=== PATIENT | male | born 1955 | race Caucasian/White ===

== ENCOUNTER 2017-03-15 20:19 | Observation (INO) | payer MEDICARE, OTHER ==
[~2017-03-15] VITALS: Ht 180.3 cm; Wt 78.0 kg
[2017-03-15 20:25] VITALS: BP 228/138; PULSE 130; RESP 20; O2SAT 96
[2017-03-15 20:30] VITALS: BP 185/120; PULSE 103; RESP 22; O2SAT 98
[2017-03-15 20:40] VITALS: RESP 20
[2017-03-15] MEDS ORDERED: SODIUM CHLORIDE 0.9% FLUSH 10 ML FLUSH IVF PRN (20:45)
[2017-03-15 20:56] VITALS: BP_SYST 166; BP_SYST 177; BP_DIAS 89; BP_DIAS 99; PULSE 88; RESP 20; O2SAT 98
--- NOTE | 2017-03-15 20:58 | PD ---
HPI Chief Complaint: Chest Pain Time Seen by Provider: 20:36 Travel History International Travel<30 days: No Contact w/Intl Traveler<30days: No Traveled to known affect area: No History of Present Illness HPI The patient is a 62 year old male who presents to the [facility] emergency department with a history of medial chest pain that began suddenly approximately 45 minutes ago. The patient reports that he was sitting in a car when it began. He reports having some shortness of breath associated with this. He reports having pain that radiates to the right shoulder. He reports having associated nausea and vomiting 2-3 times en route to this facility. He denies having any diaphoresis. The patient has a prior history of myocardial infarction with 4 prior stents being placed. The most recent 2 stents were placed 6 years ago. He recently moved to the area from [place]. 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 He has established with a primary care physician, Dr. Mckeon. He reports that he did take his adult aspirin today. He reports that he also took his metoprolol for his blood pressure. The only other medication that the patient reports that he is on his Percocet that he's been on for the last year related to chronic neck and back pain. The patient last had a stress test done approximately a year ago. On review of systems, the patient denies any recent fevers, cough or congestion, new neck pain, abdominal pain, diarrhea, urinary symptoms, or new neurologic symptoms. The patient reports having chronic weakness of the right upper and right lower extremity related to a neck surgery done in April 2016. [facility] Past Medical History Narrative Medical the patient's past medical history is significant for chronic neck and back pain. The patient has chronic weakness of the right upper and right lower extremity related to a neck surgery done in April 2016, history of coronary artery disease with prior myocardial infarction and 4 stents placed previously. The patient has a history of hypertension. He denies any history of hyperlipidemia. Diminished Hearing: No Headaches: Yes Immunizations Current: Yes Tetanus Vaccination: Unknown Influenza Vaccination: No Past Surgical History Narrative Surgical The patient's past surgical history is significant for catheterization with 4 prior stents placed, history of neck surgery. Cardiac Surgery: Yes (4 stents) Social History Alcohol Use: No Tobacco Use: Yes (a quarter of a pack of cigarettes per day) Substance Use: No Allergies-Medications (Allergen,Severity, Reaction): Coded Allergies: No Known Allergies (Unverified , 03/15/17) Reported Meds & Prescriptions Reported Meds & Active Scripts Active Reported Percocet (Oxycodone-Acetaminophen) 5-325 mg Tab 1 Tab PO Q4H PRN Narrative Medication Metoprolol, Percocet, adult aspirin daily Review of Systems Except as stated in HPI: all other systems reviewed are Neg General / Constitutional: No: Fever Eyes: No: Visual changes HENT: Positive: Headaches, Neck Pain, No: Congestion, Neck Stiffness Cardiovascular: Positive: Chest Pain or Discomfort, Dyspnea on exertion Respiratory: Positive: Shortness of Breath, No: Cough Gastrointestinal: Positive: Nausea, Vomiting, No: Diarrhea, Abdominal Pain Genitourinary: No: Dysuria Musculoskeletal: Positive: Myalgias, Pain Skin: No Rash Neurologic: Positive: Focal Abnormalities (chronic weakness of the right upper and lower extremity), No: Weakness, Change in Mentation, Slurred Speech, Sensory Disturbance Psychiatric: No: Depression Endocrine: No: Polydipsia Hematologic/Lymphatic: No: Easy Bruising Physical Exam Narrative General: The patient is a well-developed well-nourished male. Head and Neck exam: Head is normocephalic atraumatic. Eyes: EOMI, pupils are equal round and reactive to light. Nose: Midline septum with pink mucous membranes Mouth: Dentition unremarkable. Moist mucus membranes. Posterior oropharynx is not erythematous. No tonsillar hypertrophy. Uvula midline. Airway patent. Neck: No palpable lymphadenopathy. No nuchal rigidity. No thyromegaly. The patient reports having left-sided neck pain. The patient has a scar along the posterior aspect of the left neck from a prior surgery. Cardiovascular: Regular rate and rhythm without murmurs, gallops, or rubs. Lungs: Clear to auscultation bilaterally. No wheezes, rhonchi, or rales. Abdomen: Soft, without tenderness to palpation in all 4 quadrants of the abdomen. No guarding, rebound, or rigidity. Normal bowel sounds are audible. Extremities: No clubbing, cyanosis, or edema. 2+ pulses in all 4 extremities. No calf tenderness on palpation. Back: No spinous process tenderness to palpation. No costovertebral angle tenderness to palpation. Neurologic Exam: The patient on examination has cranial nerves II through XII intact. The patient has weakness that is 4 over 5 in the right upper and right lower extremity which she reports is chronic related to his prior neck surgery. The patient has 5 over 5 strength in the left upper and left lower extremity. Intact sensation over all dermatomes. Skin Exam: No rash noted. Intact skin that is warm and dry. Data Data Last Documented VS Vital Signs Date Time Temp Pulse Resp B/P (MAP) Pulse Ox O2 Delivery O2 Flow Rate FiO2 03/15/17 21:57 20 03/15/17 21:00 95 168/98 (121) 98 Nasal Cannula 03/15/17 20:56 2.00 Orders Orders Electrocardiogram (03/15/17 20:38) B-Type Natriuretic Peptide (03/15/17 20:38) Ckmb (Isoenzyme) Profile (03/15/17 20:38) Complete Blood Count With Diff (03/15/17 20:38) Comprehensive Metabolic Panel (03/15/17 20:38) Magnesium (Mg) (03/15/17 20:38) Prothrombin Time / Inr (Pt) (03/15/17 20:38) Act Partial Throm Time (Ptt) (03/15/17 20:38) Troponin I (03/15/17 20:38) Lipase (03/15/17 20:38) Chest, Single Ap (03/15/17 20:38) Ecg Monitoring (03/15/17 20:38) Bilateral Bp Monitoring (03/15/17 20:38) Iv Access Insert/Monitor (03/15/17 20:38) Oximetry (03/15/17 20:38) Oxygen Administration (03/15/17 20:38) Sodium Chloride 0.9% Flush (Ns Flush) (03/15/17 20:45) Nitroglycerin 2% Oint (Nitroglycerin 2% (03/15/17 21:00) Nitroglycerin Sl (Nitrostat Sl) (03/15/17 21:00) Admit Order (Ed Use Only) (03/15/17 22:20) Labs Laboratory Tests Test 03/15/17 20:45 White Blood Count 5.5 TH/MM3 Red Blood Count 4.34 MIL/MM3 Hemoglobin 14.8 GM/DL Hematocrit 43.7 % Mean Corpuscular Volume 100.8 FL Mean Corpuscular Hemoglobin 34.2 PG Mean Corpuscular Hemoglobin Concent 33.9 % Red Cell Distribution Width 13.6 % Platelet Count 176 TH/MM3 Mean Platelet Volume 9.0 FL Neutrophils (%) (Auto) 46.8 % Lymphocytes (%) (Auto) 41.4 % Monocytes (%) (Auto) 8.4 % Eosinophils (%) (Auto) 2.7 % Basophils (%) (Auto) 0.7 % Neutrophils # (Auto) 2.6 TH/MM3 Lymphocytes # (Auto) 2.3 TH/MM3 Monocytes # (Auto) 0.5 TH/MM3 Eosinophils # (Auto) 0.1 TH/MM3 Basophils # (Auto) 0.0 TH/MM3 CBC Comment DIFF FINAL Differential Comment Prothrombin Time 9.9 SEC Prothromb Time International Ratio 1.0 RATIO Activated Partial Thromboplast Time 27.3 SEC Blood Urea Nitrogen 16 MG/DL Creatinine 1.12 MG/DL Random Glucose 113 MG/DL Total Protein 8.0 GM/DL Albumin 3.9 GM/DL Calcium Level 8.4 MG/DL Magnesium Level 2.2 MG/DL Alkaline Phosphatase 155 U/L Aspartate Amino Transf (AST/SGOT) 15 U/L Alanine Aminotransferase (ALT/SGPT) 16 U/L Total Bilirubin 0.2 MG/DL Sodium Level 142 MEQ/L Potassium Level 3.5 MEQ/L Chloride Level 109 MEQ/L Carbon Dioxide Level 25.7 MEQ/L Anion Gap 7 MEQ/L Estimat Glomerular Filtration Rate 67 ML/MIN Total Creatine Kinase 76 U/L Troponin I LESS THAN 0.02 NG/ML B-Type Natriuretic Peptide 25 PG/ML Lipase 283 U/L MDM Medical Decision Making Medical Screen Exam Complete: Yes Emergency Medical Condition: Yes Medical Record Reviewed: Yes Interpretation(s) Last Impressions Chest X-Ray 03/15/172037 Signed Impressions: Service Date/Time: Wednesday, March 15, 2017 20:57 - CONCLUSION: No acute disease. Khai Maloney Jr., MD Differential Diagnosis Acute coronary syndrome, versus acid reflux, versus anxiety disorder, versus pneumothorax, versus pleurisy, versus costochondritis Narrative Course During the course of the patients emergency department visit, the patients history, examination, and differential diagnosis were reviewed with the patient. The patient was placed on a department store manager with oximetry and frequent blood pressure monitoring. The patient had IV access obtained and blood work sent for analysis. The patient had an ECG done on arrival. The patient's ECG reveals a sinus tachycardia heart rate of 104, QRS duration is 80 ms, QTC 406 ms , no acute ST segment elevation is noted. The patient was initially provided nitroglycerin sublingual every 5 minutes 3 when necessary chest pain, nitroglycerin 1 inch the chest wall. The patient reports that he took an adult aspirin earlier today. The patients laboratory studies were reviewed and remarkable for a white count of 5.5, hemoglobin 14.8, platelets 176 with 8.4 monocytes, CMP as remarkable for chloride of 109, glucose 113, calcium 8.4, alk phos 155, initial set of cardiac enzymes within normal limits, BNP 25, lipase 283, PT/PTT within normal limits. Radiology studies were reviewed and remarkable for chest x-ray that shows no acute cardiopulmonary disease. CT scan of the brain shows no acute abnormality. The patient will be admitted to the chest pain center for rule out serial cardiac enzyme protocol followed by stress testing. After the patient with admitted, the patient began to complain of continued headache in spite of administration of Percocet and Lortab. I would asked to reevaluate the patient as a patient with requesting evaluation by the physician again. Because of the patient's continued headache which as likely being exacerbated by nitroglycerin , the patient with given morphine 4 mg IV, 25 mg IV, Compazine 5 mg IV. The patient's results were discussed with the patient, including the plan of care. I explained that further testing and/ or monitoring is indicated based on the patient,s history, examination, and/ or laboratory findings. Therefore, I recommended admission for additional evaluation. The patient expressed understanding and was agreeable with this plan. The patient was admitted to the hospital in stable condition and sent to a bed under the care of the chest pain center. Diagnosis Primary Impression: Chest pain, rule out acute myocardial infarction Admitting Information Admitting Physician Requests: Observation Yamile Luu MD Mar 15, 2017 20:58
[2017-03-15 21:00] VITALS: BP 168/98; PULSE 95; RESP 20; O2SAT 98
[2017-03-15] MEDS ORDERED: NITROGLYCERIN 2% OINT 1 GM PACKET TOPICAL ONE (21:00)
[2017-03-15 21:14] LABS: AUTOMATED NEUTROPHIL # 2.6 TH/MM3 (1.8-7.7); BASOPHIL % 0.7 % (0.0-2.0); EOSINOPHIL # 0.1 TH/MM3 (0-0.4); EOSINOPHIL % 2.7 % (0.0-4.0); HEMATOCRIT 43.7 % (39.0-51.0); HEMOGLOBIN 14.8 GM/DL (13.0-17.0); LYMPH % 41.4 % (9.0-44.0); LYMPHOCYTE # 2.3 TH/MM3 (1.0-4.8); MEAN CELL VOLUME 100.8 FL (80.0-100.0); MEAN CORPUSCULAR HEMOGLOBIN 34.2 PG (27.0-34.0); MEAN CORPUSCULAR HGB CONC 33.9 % (32.0-36.0); MONO % 8.4 % (0.0-8.0); MONOCYTE # 0.5 TH/MM3 (0-0.9); NEUT % 46.8 % (16.0-70.0); PLATELET COUNT 176 TH/MM3 (150-450); RED BLOOD COUNT 4.34 MIL/MM3 (4.50-5.90); RED CELL DISTRIBUTION WIDTH 13.6 % (11.6-17.2); WHITE BLOOD COUNT 5.5 TH/MM3 (4.0-11.0)
[2017-03-15] MEDS: NITROGLYCERIN 0.4 MG SL 25 TABS/BTL SL PRN ×3 (21:16→21:32)
--- NOTE | 2017-03-15 21:19 | RADRPT ---
EXAM DATE/TIME: 03/15/2017 20:57 [facility] COMPARISON: No previous studies available for comparison. INDICATIONS : Chest pain, shortness of breath. MEDICAL HISTORY : Hypertension. Smoker. SURGICAL HISTORY : Coronary artery stent. ENCOUNTER: Initial ACUITY: 1 day PAIN SCORE: 8/10 LOCATION: chest midline. FINDINGS: A single view of the chest demonstrates the lungs to be symmetrically aerated without evidence of mas s, infiltrate or effusion. The cardiomediastinal contours are unremarkable. Osseous structures are intact. CONCLUSION: No acute disease. Khai Malnoey Jr., MD on March 15, 2017 at 21:16 Board Certified Radiologist. This report was verified electronically.
[2017-03-15 21:25] LABS: PROTHROMBIN TIME - PATIENT 9.9 SEC (9.8-11.6)
[2017-03-15 21:39] LABS: ALT (GPT) 16 U/L (12-78)
[2017-03-15 21:55] LABS: ALBUMIN 3.9 GM/DL (3.4-5.0); ALKALINE PHOSPHATASE 155 U/L (45-117); AST (GOT) 15 U/L (15-37); BICARBONATE 25.7 MEQ/L (21.0-32.0); BLOOD UREA NITROGEN 16 MG/DL (7-18); CALCIUM 8.4 MG/DL (8.5-10.1); CHLORIDE 109 MEQ/L (98-107); CREATININE 1.12 MG/DL (0.60-1.30); GLOMERULAR FILTRATION RATE 67 ML/MIN (>89); GLUCOSE,RANDOM 113 MG/DL (74-106); LIPASE 283 U/L (73-393); MAGNESIUM 2.2 MG/DL (1.5-2.5); SODIUM (NA) 142 MEQ/L (136-145); TOTAL BILIRUBIN ADULT 0.2 MG/DL (0.2-1.0); TROPONIN I LESS THAN 0.02 NG/ML (0.02-0.05)
[2017-03-15 22:23] VITALS: BP 158/99; PULSE 82; RESP 20; O2SAT 96
[2017-03-15] MEDS ORDERED: oxyCODONE/ACETAMINOPHEN 5 MG/325 MG TAB PO ONE (23:30)
[2017-03-15] MEDS ORDERED: ACETAMINOPHEN 500 MG CPLT PO PRN (23:45)
[2017-03-15] MEDS ORDERED: SODIUM CHLORIDE 0.9% FLUSH 10 ML FLUSH IV FLUSH PRN (23:45)
[2017-03-15] MEDS ORDERED: ONDANSETRON HCL 4 MG/2 ML VIAL IV PUSH PRN (23:45)
[2017-03-15] MEDS ORDERED: PERC5TAB12 PO (23:50)
[2017-03-16] VITALS (8 sets, daily range): BP systolic 135–165; BP diastolic 78–102; PULSE 61–77; RESP 15–18; TEMP 97.6–98.1; O2SAT 95–98
[2017-03-16 00:50] LABS: TROPONIN I 0.02 NG/ML (0.02-0.05)
--- NOTE | 2017-03-16 00:54 | RADRPT ---
EXAM DATE/TIME: 03/16/2017 00:05 [facility] COMPARISON: No previous studies available for comparison. INDICATIONS : Cephalgia RADIATION DOSE: 56.35 CTDIvol (mGy) MEDICAL HISTORY : Cardiovascular disease. SURGICAL HISTORY : None. ENCOUNTER: Initial ACUITY: 1 day PAIN SCALE: 5/10 LOCATION: cranial TECHNIQUE: Multiple contiguous axial images were obtained of the head. Using automated exposure control and adj ustment of the mA and/or kV according to patient size, radiation dose was kept as low as reasonably a chievable to obtain optimal diagnostic quality images. DICOM format image data is available electro nically for review and comparison. FINDINGS: CEREBRUM: The ventricles are normal for age. No evidence of midline shift, mass lesion, hemorrhage or acute in farction. No extra-axial fluid collections are seen. POSTERIOR FOSSA: The cerebellum and brainstem are intact. The 4th ventricle is midline. The cerebellopontine angle i s unremarkable. EXTRACRANIAL: The visualized portion of the orbits is intact. SKULL: The patient is status post left occipital craniotomy. Prosthetic material is seen over the surgical d efect. Multiple small lucent areas seen throughout the skull. CONCLUSION: 1. No acute intracranial abnormality seen. 2. Status post left occipital craniotomy. 3. Nonspecific multiple small lucent areas throughout the skull. This can be within normal limits. Th is can also be seen with small focal bone lesions such as multiple myeloma or metastatic lesions in t he correct clinical situation. Jorgito Ortega MD on March 16, 2017 at 0:47 Board Certified Radiologist. This report was verified electronically.
[2017-03-16] MEDS: ACETAMINOPHEN/HYDROcodone 325 MG/7.5 MG TAB PO PRN ×2 (01:12→10:50)
[2017-03-16] MEDS ORDERED: PROCHLORPERAZINE INJ 10 MG/2 ML VIAL IV PUSH ONE (03:45)
[2017-03-16] MEDS ORDERED: MORPHINE SULFATE 4 MG/ML INJ IV PUSH ONE (03:45)
[2017-03-16] MEDS ORDERED: diphenhydrAMINE HCL 50 MG/ML VIAL IV PUSH ONE (03:45)
[2017-03-16 06:40] LABS: TROPONIN I LESS THAN 0.02 NG/ML (0.02-0.05)
[2017-03-16] MEDS ORDERED: SODIUM CHLORIDE 0.9% FLUSH 10 ML FLUSH IV FLUSH SCH (09:00)
[2017-03-16] MEDS ORDERED: amLODIPine BESYLATE 5 MG TAB PO SCH (10:30)
[2017-03-16] MEDS ORDERED: ASPIRIN 325 MG TAB PO SCH (10:30)
--- NOTE | 2017-03-16 11:22 | HHI.HP ---
[facility] Primary Care Physician Shelby Mckeon M.D. Chief Complaint Chest pain History of Present Illness This is a 62-year-old male that presents to ED with history of CAD with complaint of chest discomfort. States the discomfort began last evening. He was sitting in a car when it began. Symptoms lasted about 2-3 hours. Found nothing to worsen or improve the discomfort when they were present. He was short of breath with the. Begins in the center of his chest and radiates to the right side. He was nauseous. Has history of CAD and states he had 4 stents 6 years ago while in [place]. Lives in this area at this time and has not established with a qa intern. His primary care physician is Dr. Mckeon. Complains of chronic neck and back pain as well as chronic headache. States he had surgery on his head and cannot give any further details of the head or brain surgery. He states that he has had chronic headaches ever since. Review of Systems General: Patient denies fevers, chills recent, and recent travel HEENT: Patient denies sore throat, difficulty swallowing. Cardiovascular: Has the chest discomfort as mentioned above. Denies sensation of heart beating rapidly or irregularly. No syncope. Denies diaphoresis. Respiratory: He was short of breath. Denies inspirational chest discomfort. Denies coughing wheezing or hemoptysis. GI: He was nauseous. Patient denies vomiting, diarrhea, abdominal pain, bloody stools. Musculoskeletal: Patient denies joint pain or edema. Denies calf pain or edema. Neurovascular: Patient denies numbness, tingling, weakness in extremities. Complains of chronic headache. Endocrine: Denies polyuria and polydipsia. Hematologic: Denies easy bruising. Skin: Denies rash or itching. Past Family Social History Allergies: Coded Allergies: No Known Allergies (Unverified , 03/15/17) Past Medical History CAD with stated stents.. Chronic headache and states he's had a brain or head surgery but does not know the specifics. Hypertension but doesn't know the medication that he takes. Denies hyperlipidemia and states he takes nothing for it although he has history of CAD. Denies diabetes. Chronic neck and back pain. Tobacco abuse. Past Surgical History Either head or brain surgery but does not know more specific. He has had cardiac catheterization with stents. Neck surgery. Reported Medications Reported Meds & Active Scripts Active Reported Percocet (Oxycodone-Acetaminophen) 5-325 mg Tab 1 Tab PO Q4H PRN Active Ordered Medications Current Medications Medications (Trade) Dose Ordered Sig/Iraida Route Start Time Stop Time Status Last Admin (Nitrostat Sl) 0.4 mg Q5M PRN SL 03/15/17 21:00 03/15/17 21:32 (NS Flush) 2 ml UNSCH PRN IV FLUSH 03/15/17 23:45 (NS Flush) 2 ml BID IV FLUSH 03/16/17 09:00 03/16/17 09:00 (Tylenol) 500 mg Q4H PRN PO 03/15/17 23:45 (Mobile 7.5-325 Mg) 1 tab Q4H PRN PO 03/15/17 23:45 03/16/17 10:50 (Zofran Inj) 4 mg Q6H PRN IV PUSH 03/15/17 23:45 (Norvasc) 5 mg DAILY PO 03/16/17 10:30 03/16/17 10:50 (Aspirin) 325 mg DAILY PO 03/16/17 10:30 03/16/17 10:30 Family History Not aware of his family cardiac history. Social History Continues to smoke one third pack of cigarettes daily. Denies alcohol or illicit drug use. Physical Exam Vital Signs Vital Signs Date Time Temp Pulse Resp B/P (MAP) Pulse Ox O2 Delivery O2 Flow Rate FiO2 03/16/17 10:20 97.8 65 18 165/92 (116) 95 03/16/17 10:16 98 Nasal Cannula 2.00 03/16/17 08:00 97.6 61 16 162/102 (122) 98 03/16/17 07:00 61 03/16/17 07:00 98 Nasal Cannula 2.00 03/16/17 04:11 98.1 69 15 158/99 (118) 96 03/16/17 02:15 96 Nasal Cannula 2.00 03/16/17 01:52 77 03/16/17 01:49 97.7 69 16 164/102 (122) 96 03/16/17 00:50 20 03/15/17 22:23 82 20 158/99 (118) 96 Nasal Cannula 03/15/17 21:57 20 03/15/17 21:00 95 20 168/98 (121) 98 Nasal Cannula 03/15/17 20:56 88 20 166/99 (121) 98 Nasal Cannula 2.00 177/89 (118) 03/15/17 20:40 98 Nasal Cannula 2.00 03/15/17 20:40 20 03/15/17 20:30 103 22 185/120 (141) 98 03/15/17 20:25 130 20 228/138 (168) 96 Physical Exam GENERAL: This is a well-nourished, well-developed patient, in no apparent distress. Patient speaks in clear complete sentences. Patient is pleasant. HEENT: Head is atraumatic and normocephalic. Neck is supple without lymphadenopathy and trachea is midline. No JVD or carotid bruits. CARDIOVASCULAR: Regular rate and rhythm without murmurs, gallops, or rubs. RESPIRATORY: Clear to auscultation. Breath sounds equal bilaterally. No wheezes , rales, or rhonchi. Chest wall is nontender. No use of accessory muscles. GASTROINTESTINAL: Abdomen is nontender, nondistended. Abdomen soft. No obvious pulsatile mass or bruit. No CVA tenderness. Strong femoral pulses bilaterally. Normal bowel sounds in all quadrants. MUSCULOSKELETAL: Patient is moving upper and lower extremities freely. No calf tenderness or edema, no Homans sign. Strong pulses in upper and lower extremities. NEUROLOGICAL: Patient is alert and oriented. Cranial nerves 2-12 are grossly intact. No focal deficits and speech is clear. SKIN: No rash and turgor is normal. Laboratory Laboratory Tests Test 03/15/17 20:45 03/15/17 23:55 03/16/17 05:57 White Blood Count 5.5 Red Blood Count 4.34 Hemoglobin 14.8 Hematocrit 43.7 Mean Corpuscular Volume 100.8 Mean Corpuscular Hemoglobin 34.2 Mean Corpuscular Hemoglobin Concent 33.9 Red Cell Distribution Width 13.6 Platelet Count 176 Mean Platelet Volume 9.0 Neutrophils (%) (Auto) 46.8 Lymphocytes (%) (Auto) 41.4 Monocytes (%) (Auto) 8.4 Eosinophils (%) (Auto) 2.7 Basophils (%) (Auto) 0.7 Neutrophils # (Auto) 2.6 Lymphocytes # (Auto) 2.3 Monocytes # (Auto) 0.5 Eosinophils # (Auto) 0.1 Basophils # (Auto) 0.0 CBC Comment DIFF FINAL Differential Comment Prothrombin Time 9.9 Prothromb Time International Ratio 1.0 Activated Partial Thromboplast Time 27.3 Blood Urea Nitrogen 16 Creatinine 1.12 Random Glucose 113 Total Protein 8.0 Albumin 3.9 Calcium Level 8.4 Magnesium Level 2.2 Alkaline Phosphatase 155 Aspartate Amino Transf (AST/SGOT) 15 Alanine Aminotransferase (ALT/SGPT) 16 Total Bilirubin 0.2 Sodium Level 142 Potassium Level 3.5 Chloride Level 109 Carbon Dioxide Level 25.7 Anion Gap 7 Estimat Glomerular Filtration Rate 67 Total Creatine Kinase 76 42 42 Troponin I LESS THAN 0.02 0.02 LESS THAN 0.02 B-Type Natriuretic Peptide 25 Lipase 283 Result Diagram: 03/15/17204403/15/172044 Imaging Last [address] 03/15/172328 Signed Impressions: Service Date/Time: Thursday, March 16, 2017 00:05 - CONCLUSION: 1. No acute intracranial abnormality seen. 2. Status post left occipital craniotomy. 3. Nonspecific multiple small lucent areas throughout the skull. This can be within normal limits. This can also be seen with small focal bone lesions such as multiple myeloma or metastatic lesions in the correct clinical situation. Jorgito Ortega MD Chest X-Ray 03/15/172037 Signed Impressions: Service Date/Time: Wednesday, March 15, 2017 20:57 - CONCLUSION: No acute disease. Khai Maloney Jr., MD Course EKGs are sinus rhythm without significant ST segment depressions or elevations. Caprini VTE Risk Assessment Caprini VTE Risk Assessment: No/Low Risk (score <= 1) Caprini Risk Assessment Model Point Value = 1 Point Value = 2 Point Value = 3 Point Value = 5 Age 41-60 Minor surgery BMI > 25 kg/m2 Swollen legs Varicose veins or History of unexplained or recurrent spontaneous Oral contraceptives or hormone replacement Sepsis (< 1 month) Serious lung disease, including pneumonia (< 1 month) Abnormal pulmonary function Acute myocardial infarction Congestive heart failure (< 1 month) History of inflammatory bowel disease Medical patient at bed rest Age 61-74 Arthroscopic surgery Major open surgery (> 45 min) Laparoscopic surgery (> 45 min) Malignancy Confined to bed (> 72 hours) Immobilizing plaster cast Central venous access Age >= 75 History of VTE Family history of VTE Factor V Leiden Prothrombin [id number] Lupus anticoagulant Anticardiolipin antibodies Elevated serum homocysteine Heparin-induced thrombocytopenia Other congenital or acquired thrombophilia Stroke (< 1 month) Elective arthroplasty Hip, pelvis, or leg fracture Acute spinal cord injury (< 1 month) Prophylaxis Regimen Total Risk Factor Score Risk Level Prophylaxis Regimen 0-1 Low Early ambulation 2 Moderate Order ONE of the following: *Sequential Compression Device (SCD) *Heparin 5000 units SQ BID 3-4 Higher Order ONE of the following medications: *Heparin 5000 units SQ TID *Enoxaparin/Lovenox 40 mg SQ daily (WT < 150 kg, CrCl > 30 mL/min) *Enoxaparin/Lovenox 30 mg SQ daily (WT < 150 kg, CrCl > 10-29 mL/min) *Enoxaparin/Lovenox 30 mg SQ BID (WT < 150 kg, CrCl > 30 mL/min) AND/OR *Sequential Compression Device (SCD) 5 or more Highest Order ONE of the following medications: *Heparin 5000 units SQ TID (Preferred with Epidurals) *Enoxaparin/Lovenox 40 mg SQ daily (WT < 150 kg, CrCl > 30 mL/min) *Enoxaparin/Lovenox 30 mg SQ daily (WT < 150 kg, CrCl > 10-29 mL/min) *Enoxaparin/Lovenox 30 mg SQ BID (WT < 150 kg, CrCl > 30 mL/min) AND *Sequential Compression Device (SCD) Assessment and Plan Assessment and Plan * Chest pain: Patient has had serial cardiac enzymes and EKGs for ruling out purposes. He was seen by Dr. Bill Fritz of cardiology in the chest pain center and will have a Lexiscan. He would discharged home if stress testing is nonischemic with instructions to follow-up with a local qa intern as well as PCP. * CAD: Patient states he has had 4 stents. This will be reassessed for stress testing. He'll be started on statin therapy and will need to have repeat LFTs in a few weeks. * Hypertension: We'll start amlodipine. * Tobacco abuse: Patient has been counseled on importance of smoking cessation. * Lucent areas throughout the skull: This is seen on CT brain. This will need to be followed with the patient's primary care physician. Report will be given to patient. In the radiology report it states "nonspecific multiple small lucent areas throughout the skull. This can be within normal limits. This can also be seen with small focal bone lesion such as multiple myeloma or metastatic lesions in the correct clinical situation." Patient is stable at this time. He is agreeable to this plan. I was able to speak with a nurse at Dr. Mckeon's office and they already had the CT brain results showing possible abnormality. She has requested that the patient come to the office tomorrow at 12:15 to be seen by Dr. Mckeon to discuss the results. This information will be relayed to the patient. Ozzy Cardoza Mar 16, 2017 11:22
[2017-03-16] MEDS ORDERED: REGADENOSON INJ 0.4 MG/5 ML SYR ONE (12:38)
--- NOTE | 2017-03-16 13:02 | EKG ---
Date Performed: 03/16/2017 Time Performed: 05:37:28 PTAGE: 62 years EKG: Sinus rhythm NONSPECIFIC T-WAVE ABNORMALITY BORDERLINE ECG PREVIOUS TRACING : 03/15/2017 20.30 Since previous tracing, no significant change noted DOCTOR: Bill Fritz Interpretating Date/Time 03/16/2017 13:00:52
--- NOTE | 2017-03-16 13:04 | EKG ---
Date Performed: 03/15/2017 Time Performed: 23:58:36 PTAGE: 62 years EKG: Sinus rhythm NONSPECIFIC T-WAVE ABNORMALITY BORDERLINE ECG NO PREVIOUS TRACING DOCTOR: Bill Fritz Interpretating Date/Time 03/16/2017 13:03:06
--- NOTE | 2017-03-16 13:05 | EKG ---
Date Performed: 03/15/2017 Time Performed: 20:30:55 PTAGE: 62 years EKG: SINUS TACHYCARDIA NONSPECIFIC ST & T-WAVE ABNORMALITY ABNORMAL RHYTHM ECG NO PREVIOUS TRACING DOCTOR: Bill Fritz Interpretating Date/Time 03/16/2017 13:03:54
--- NOTE | 2017-03-16 13:58 | RADRPT ---
EXAM DATE/TIME: 03/16/2017 12:14 [place] COMPARISON: No previous studies available for comparison. INDICATIONS : Substernal chest pain radiating to right arm with dyspnea and nausea. Angina. Coronary artery disease . DOSE: 25.9 mCi Tc99m Myoview at stress. 8.3 mCi Tc99m Myoview at rest. 0.4 mg Lexiscan STRESS SYMPTOMS: Short of breath. EJECTION FRACTION: 65% MEDICAL HISTORY : Hypertension. Myocardial infarction. SURGICAL HISTORY : Coronary artery stent. Neck. ENCOUNTER: Initial ACUITY: 1 day PAIN SCALE: 6/10 LOCATION: Substernal chest TECHNIQUE: The patient underwent pharmacologic stress with infusion of prescribed dose. Continuous ECG tracing was monitored during stress. Gated SPECT imaging was performed after stress and conventional SPECT i maging was performed at rest. The examination was performed on a SPECT/CT scanner, both attenuation and non-corrected datasets were reviewed. FINDINGS: DISTRIBUTION: The maximum perfused segment at stress is in the anterolateral wall. PERFUSION STUDY: The pattern of perfusion at stress is within normal limits. GATED STUDY: There is intact wall motion and thickening without hypokinetic or dyskinetic segments. CONCLUSION: 1. No reversible perfusion defect to suggest stress-induced myocardial ischemia. RISK CATEGORY: Low (<1% Annual Mortality Rate) Geo Gaspar MD on March 16, 2017 at 13:55 Board Certified Radiologist. This report was verified electronically.
[2017-03-16] MEDS ORDERED: AMLO5TAB2 PO (15:12)
[2017-03-16] MEDS ORDERED: ATOR40TA16 PO (15:12)
--- NOTE | 2017-03-16 15:14 | HHI.DCPOC ---
Discharge Care Plan Diagnosis: (1) Chest pain (2) CAD (coronary artery disease) (3) H/O heart artery stent (4) Skull lesion (5) Hyperlipidemia (6) Hypertension (7) Tobacco abuse (8) Chronic neck pain Goals to Promote Your Health DISCUSS ABNORMAL CT SCAN WITH DR HASTINGS TOMORROW. WILL NEED TO RECHECK LIVER ENZYMES IN TWO WEEKS NOW THAT YOU ARE TAKING CHOLESTEROL MEDICATION. * To prevent worsening of your condition and complications * To maintain your health at the optimal level Directions to Meet Your Goals Take your medications as prescribed Follow your dietary instruction Follow activity as directed Keep your appointments as scheduled Take your immunizations and boosters as scheduled If your symptoms worsen call your PCP, if no PCP go to Urgent Care Center or Emergency Room Smoking is Dangerous to Your Health. Avoid second hand smoke Call the 24-hour hour crisis hotline for domestic abuse at Ozzy Cardoza Mar 16, 2017 15:14
--- NOTE | 2017-03-17 13:04 | TR ---
Date Performed: 03/16/2017 Time Performed: 12:40:58 DOCTOR: Aditya Weiss DRUG LIST: CLINICAL HISTORY: REASON FOR TEST: CHEST PAIN REASON FOR ENDING: OBSERVATION: CONCLUSION: Lexiscan stress test was performed under standard four minute protocol. Radionuclide was injected one minute prior to ending the test. No electrocardiographic abormalities were present to suggest ischemia. Nuclear imaging and interpretation are pending. COMMENTS:
== END 2017-03-16 18:21 | disposition home or self-care (01) ==
LOC: NEPE 20:19 → NEDA 22:22 → NEDH 03-16 02:22 → NEPGCP 03-16 10:16
PROVIDERS: ADMIT Internal Medicine Interventional Cardiology; ATTEND Internal Medicine Interventional Cardiology
DX: R07.9 Chest pain, unspecified (principal); I25.10 Atherosclerotic heart disease of native coronary artery without angina pectoris; I10 Essential (primary) hypertension; M54.2 Cervicalgia; G89.29 Other chronic pain; C90.00 Multiple myeloma not having achieved remission; E78.5 Hyperlipidemia, unspecified; M89.9 Disorder of bone, unspecified; I25.2 Old myocardial infarction; F17.210 Nicotine dependence, cigarettes, uncomplicated; Z95.5 Presence of coronary angioplasty implant and graft
CPT/HCPCS: 70450; 71045; 78452; 80053; 82550; 83690; 83735; 83880; 84484; 85025; 85610; 85730; 93005; 93017; 96374; 96375; 99285; A9502; G0378; J0780; J1200; J2270; J2785

== ENCOUNTER 2017-11-20 13:59 | Observation (INO) ==
--- NOTE | 2017-11-20 15:30 | ED ---
HPI General Chief complaint: Eye Problems Stated complaint: Multiple Complaints Time Seen by Provider: 11/20/17 14:58 Source: patient and family Mode of arrival: ambulatory Limitations: no limitations History of Present Illness HPI narrative: Patient is a 62-year-old male with history of CVA, coronary artery disease with stents, chronic neck and back pain, hypertension presents the emergency room with multiple complaints. Patient reports that he woke up this morning and around 10:30 AM began to have left-sided posterior headache. Patient reports that the headache radiates to the front of his head, reports that he began to have double vision and pains down his left arm and back. Patient reports that overall, he has been having increased weakness to his right upper extremity, reports that he has also noticed difficulty with speech. Reports that he is able to speak normally but a lot slower than normal, he feels as if he cant talk at his normal speed. Patient reports that he had a stroke one year ago which required surgical intervention, patient is unsure what kind of surgery he had to his brain. Patient's PCP is Dr. Shelby Mckeon Related Data Home Medications Medication Instructions Recorded Confirmed amlodipine 10 mg PO DAILY 11/20/17 11/20/17 metoprolol tartrate 100 mg PO DAILY 11/20/17 11/20/17 oxycodone-acetaminophen 1 tab PO Q4H PRN 11/20/17 11/20/17 Allergies Allergy/AdvReac Type Severity Reaction Status Date / Time No Known Allergies Allergy Verified 11/20/17 14:13 Review of Systems ROS: all other systems reviewed are negative PMFSH History History Provided By: Patient Medical History Medical History CAD (coronary artery disease) (Acute) CVA (cerebral vascular accident) (Acute) HTN (hypertension) with goal to be determined (Acute) Surgical History Surgical History H/O neck surgery (Acute) Hx of cardiac cath (Acute) Social History Social History Substance History: No History of Abuse Second Hand Smoke Exposure: Yes Smoking Status: Current every day smoker Tobacco Type: Cigarettes How Often Do You Have a Drink Containing Alcohol: Never Recent Travel in [place] within the Last 8 Weeks: No Recent Out of Country Travel within the Last 8 Weeks: No Exam Narrative Exam Narrative: GENERAL: moderate distress SKIN: Focused skin assessment warm/dry. HEAD: Atraumatic. Normocephalic. EYES: Pupils equal and round. No scleral icterus. No injection or drainage. ENT: No nasal bleeding or discharge. Mucous membranes pink and moist. NECK: Trachea midline. No JVD. CARDIOVASCULAR: Regular rate and rhythm. No murmur appreciated. RESPIRATORY: No accessory muscle use. Clear to auscultation. Breath sounds equal bilaterally. GASTROINTESTINAL: Abdomen soft, non-tender, nondistended. Hepatic and splenic margins not palpable. MUSCULOSKELETAL: No obvious deformities. No clubbing. No cyanosis. No edema. NEUROLOGICAL: Awake and alert. Normal speech, patient with right-sided upper extremity and right left-sided lower extremity drift, patient with poor right- sided finger to nose touch. NIH score 3 PSYCHIATRIC: Appropriate mood and affect; insight and judgment normal. Course Initial Documented Vital Signs Temperature 98.1 F 11/20/17 14:04 Pulse Rate 62 11/20/17 14:04 Respiratory Rate 18 11/20/17 14:04 Blood Pressure 162/79 H 11/20/17 14:04 Pulse Oximetry 97 11/20/17 14:04 Last Documented Vital Signs Temperature 98.1 F 11/20/17 14:04 Pulse Rate 55 L 11/20/17 16:00 Respiratory Rate 16 11/20/17 16:00 Blood Pressure 148/83 H 11/20/17 16:00 Pulse Oximetry 99 11/20/17 16:00 Critical Care Time Critical Care Time: Yes Total Critical Care Time: 30 Attestation: Aggregate critical care time was 30 minutes. Time to perform other separately billable procedures was not included in the critical care time. My time did not include minutes spent treating any other patients simultaneously or on activities that did not directly contribute to the patient's treatment. The services I provided to this patient were to treat and/or prevent clinically significant deterioration that could result in: , decompensation, deterioration I provided critical care services requiring my management, as noted below: Chart data review, documentation time, medication orders and management, vital sign assessments/reviewing monitor data, ordering and reviewing lab tests, ordering and interpreting/reviewing x-rays and diagnostic studies, care of the patient and discussion of the patient with the admitting physicians. NIH Stroke Scale NIH Stroke Scale Level of Consciousness: 0-Alert Orientation Questions: 0-Answers both correct Responds to Commands: 0-Both tasks correct Gaze Eye Movement: 0-Horizontal movement WNL Visual Person: 0-No visual field defect Facial Movement: 0-Normal Motor Functions Arm LEFT: 0-No drift Motor Functions Arm RIGHT: 1-Drift before 10 seconds Motor Functions Leg LEFT: 0-No drift Motor Functions Leg RIGHT: 1-Drift before 5 seconds Limb Ataxia: 0-No ataxia Sensory Loss: 1-Mild sensory loss Best Language: 0-Normal Articulation: 0-Normal Extinction or Inattention Sensory: 0-Absent Total: 3 Medical Decision Making MDM Narrative Medical decision making narrative: During the course of the patients emergency department visit, the patients history, examination, and differential diagnosis were reviewed with the patient. The patient was placed on a cafeteria monitor with oximetry and frequent blood pressure monitoring. The patient had an IV access obtained and blood work sent for analysis. Stroke alert was called overhead symptoms began around 10:30 AM this morning. Patient is not a TPA candidate, stroke alert called for possible consideration for interventional radiology intervention. NIH scale [address] Montiel - not a tpa candidate, request cta of head/neck. Case reviewed reviewed with Dr. Matthew who accepts pt to service Medical Screen Exam Complete: Yes Emergency Medical Condition: Yes Differential Diagnosis Differential Diagnosis: CVA, TIA, complicated migraine, electrolyte abnormality , ACS Medical Records Medical records reviewed: Yes I reviewed the patient's medical records. Lab Data Result diagrams: 11/20/17 15:25 Lab Results 11/20/17 11/20/17 11/20/17 Range/Units 15:23 15:25 15:25 WBC 4.3 (4.0-11.0) th/mm3 RBC 3.79 L (4.50-5.90) mil/mm3 Hgb 13.1 (13.0-17.0) gm/dL POC Hgb (Calc) (13.0-17.0) g/dL Hct 38.1 L (39.0-51.0) % POC Hct (39-51.0) % MCV 100.6 H (80.0-100.0) fL MCH 34.5 H (27.0-34.0) pg MCHC 34.3 (32.0-36.0) % RDW 13.8 (11.6-17.2) % Plt Count 163 (150-450) th/mm3 MPV 9.7 (7.0-11.0) fL Neut % (Auto) 43.5 (16.0-70.0) % Lymph % (Auto) 40.2 (9.0-44.0) % [place] % (Auto) 11.2 H (0.0-8.0) % Eos % (Auto) 4.5 H (0.0-4.0) % Baso % (Auto) 0.6 (0.0-2.0) % Neut # (Auto) 1.9 (1.8-7.7) th/mm3 Lymph # (Auto) 1.7 (1.0-4.8) th/mm3 [place] # (Auto) 0.5 (0.0-0.9) th/mm3 Eos # (Auto) 0.2 (0.0-0.4) th/mm3 Baso # (Auto) 0.0 (0.0-0.2) th/mm3 WBC Differential . Differential Comment Auto diff final PT 10.0 (9.8-11.6) sec INR 1.0 Ratio APTT 27.6 (24.3-30.1) sec Fibrinogen 282 (227-377) mg/dL POC Sodium (137-144) mmol/L POC Potassium (3.6-5.0) mmol/L POC Chloride (102-111) mmol/L POC BUN (5-21) mg/dL POC Creatinine (0.6-1.3) mg/dL POC Glucose 74 (68-110) mg/dl Total Creatine Kinase (39-308) U/L Troponin I (0.02-0.05) ng/mL Blood Type Blood Type Recheck Antibody Screen 11/20/17 11/20/17 Range/Units 15:25 15:25 WBC (4.0-11.0) th/mm3 RBC (4.50-5.90) mil/mm3 Hgb (13.0-17.0) gm/dL POC Hgb (Calc) 12.6 L (13.0-17.0) g/dL Hct (39.0-51.0) % POC Hct 37.0 L (39-51.0) % MCV (80.0-100.0) fL MCH (27.0-34.0) pg MCHC (32.0-36.0) % RDW (11.6-17.2) % Plt Count (150-450) th/mm3 MPV (7.0-11.0) fL Neut % (Auto) (16.0-70.0) % Lymph % (Auto) (9.0-44.0) % [place] % (Auto) (0.0-8.0) % Eos % (Auto) (0.0-4.0) % Baso % (Auto) (0.0-2.0) % Neut # (Auto) (1.8-7.7) th/mm3 Lymph # (Auto) (1.0-4.8) th/mm3 [place] # (Auto) (0.0-0.9) th/mm3 Eos # (Auto) (0.0-0.4) th/mm3 Baso # (Auto) (0.0-0.2) th/mm3 WBC Differential Differential Comment PT (9.8-11.6) sec INR Ratio APTT (24.3-30.1) sec Fibrinogen (227-377) mg/dL POC Sodium 144 (137-144) mmol/L POC Potassium 4.8 (3.6-5.0) mmol/L POC Chloride 107 (102-111) mmol/L POC BUN 18 (5-21) mg/dL POC Creatinine 0.7 (0.6-1.3) mg/dL POC Glucose 67 L (68-110) mg/dl Total Creatine Kinase 102 (39-308) U/L Troponin I Less than 0.02 L (0.02-0.05) ng/mL Blood Type O Positive Blood Type Recheck Required Antibody Screen Negative Imaging Data Radiologist's impression: Chest X-Ray 11/20/17 15:20 CONCLUSION: Negative examination. Head CT 11/20/17 15:20 CONCLUSION: 1. No acute findings. Report was called by [ Dr. Carvajal to Dr. Zhu at 3:38pm on 11/20/17.] Head CTA 11/20/17 15:20 CONCLUSION: 1. Negative CTA Head. Neck CTA 11/20/17 15:20 CONCLUSION: 1. Mild atherosclerosis without evidence for hemodynamically significant stenosis. ECG Data EKG Prior to Arrival: No Attestation: I personally reviewed and interpreted this ECG as follows: Interpretation: EKG at 1554: Sinus jimy at 58bpm, qt/qtc: 423/421, no acute st or t wave changes Discharge Plan Discharge Disposition Patient Disposition: 30 Still Patient Discharge Condition Condition: Fair Discharge Details Diagnosis: Acute focal neurological deficit Physicians Team ED Provider: Kemi Zhu Primary Care Provider: Shelby Mckeon Other Providers: Rakesh Montiel Rxs /Orders / Referrals /Forms Prescriptions: No Action metoprolol tartrate 100 mg Tablet 100 mg PO DAILY RF: 0 oxycodone-acetaminophen 10-325 mg Tablet 1 tab PO Q4H PRN (Reason: Pain) RF: 0 amlodipine 10 mg Tablet 10 mg PO DAILY RF: 0 Discharge Interventions Interventions: Vital Signs Last Done: 11/20/17 16:00 Status ED Status: With Doctor
--- NOTE | 2017-11-20 15:40 | CT ---
EXAM DATE: 11/20/2017 3:35 PM EDT AGE/SEX: 62 years / Male INDICATIONS: Stroke alert, right sided weakness. CLINICAL DATA: This is the patient's initial encounter. Patient reports that signs and symptoms have been present for 1 day and indicates a pain score of Nonresponsive. MEDICAL/SURGICAL HISTORY: Non-responsive. Non-responsive. RADIATION DOSE: 66.37 CTDI (mGy) COMPARISON: [facility] [place]IN [place], 03/16/2017. . TECHNIQUE: CT of the head without contrast. Using automated exposure control and adjustment of the mA and/or kV according to patient size, radiation dose was kept as low as reasonably achievable to ob tain optimal diagnostic quality images. DICOM format image data is available electronically for revi ew and comparison. FINDINGS: The patient has had previous left occipital craniectomy. There are no fractures seen. There are no si gns of acute infarction, intracranial hemorrhage, or mass. CONCLUSION: 1. No acute findings. Report was called by [ Dr. Carvajal to Dr. Zhu at 3:38pm on 11/20/17.] Electronically signed by: Curt Carvajal MD 11/20/2017 3:39 PM EDT
--- NOTE | 2017-11-20 15:51 | CT ---
EXAM DATE: 11/20/2017 3:47 PM EDT AGE/SEX: 62 years / Male INDICATIONS: Stroke alert, right sided weakness. CLINICAL DATA: This is the patient's initial encounter. Patient reports that signs and symptoms have been present for 1 day and indicates a pain score of Nonresponsive. MEDICAL/SURGICAL HISTORY: Non-responsive. Non-responsive. RADIATION DOSE: 10.62 CTDI (mGy) ; Combined studies [place] [facility] [place]. [facility] [place] W 3D[place]/20/[place]. . TECHNIQUE: Volumetric scanning was performed using a multi-row detector CT scanner during bolus infu buzz of 74 ml Visipaque 320 (iodixanol) nonionic water-soluble contrast as a cumulative dose for mul tiple exams. The data was post processed with a variety of visualization algorithms including full volume maximum intensity projection, multi-planar sliding thin slab reformation, curved planar reform ation, and surface rendering techniques. Using automated exposure control and adjustment of the mA a nd/or kV according to patient size, radiation dose was kept as low as reasonably achievable to obtain optimal diagnostic quality images. DICOM format image data is available electronically for review a nd comparison. FINDINGS: There is excellent visualization of the major intracranial arteries out to the second-order branch ve ssels. There is no evidence for aneurysm, vessel truncation or stenosis, and no evidence for vascula r malformation. CONCLUSION: 1. Negative CTA Head. Electronically signed by: Curt Carvajal MD 11/20/2017 3:50 PM EDT
--- NOTE | 2017-11-20 15:51 | XR ---
EXAM DATE: 11/20/2017 3:49 PM EDT AGE/SEX: 62 years / Male INDICATIONS: Stroke Alert CLINICAL DATA: This is the patient's initial encounter. Patient reports that signs and symptoms have been present for 1 day and indicates a pain score of Nonresponsive. MEDICAL/SURGICAL HISTORY: Non-responsive. Non-responsive. [place] [facility] [place]. . FINDINGS: A single AP view of the chest demonstrates the lungs to be symmetrically aerated without evidence of mass, infiltrate or effusion. The cardiomediastinal contours are unremarkable. Osseous structures a re intact. CONCLUSION: Negative examination. Electronically signed by: Curt Carvajal MD 11/20/2017 3:50 PM EDT
[2017-11-20 15:58] LABS: Activated Partial Thrombo Time 27.6 sec (24.3-30.1)
[2017-11-20 16:00] LABS: Baso % (Auto) 0.6 % (0.0-2.0); Eos # (Auto) 0.2 th/mm3 (0.0-0.4); Eos % (Auto) 4.5 % (0.0-4.0); Hematocrit 38.1 % (39.0-51.0); Hemoglobin 13.1 gm/dL (13.0-17.0); Lymph # (Auto) 1.7 th/mm3 (1.0-4.8); Lymph % (Auto) 40.2 % (9.0-44.0); Mean Corpuscular HGB Conc 34.3 % (32.0-36.0); Mean Corpuscular Hemoglobin 34.5 pg (27.0-34.0); Mean Corpuscular Volume 100.6 fL (80.0-100.0); Mean Platelet Volume 9.7 fL (7.0-11.0); Mono # (Auto) 0.5 th/mm3 (0.0-0.9); Mono % (Auto) 11.2 % (0.0-8.0); Neut # (Auto) 1.9 th/mm3 (1.8-7.7); Neut % (Auto) 43.5 % (16.0-70.0); Platelet Count 163 th/mm3 (150-450); Red Blood Count 3.79 mil/mm3 (4.50-5.90); Red Cell Distribution Width 13.8 % (11.6-17.2); White Blood Count 4.3 th/mm3 (4.0-11.0)
[2017-11-20] MEDS: Sod Chloride 0.9% Inj 1,000 ML IV.CONT SCH (16:03)
[2017-11-20 16:11] LABS: Creatine Kinase 102 U/L (39-308)
--- NOTE | 2017-11-20 16:17 | CT ---
EXAM DATE: 11/20/2017 4:12 PM EDT AGE/SEX: 62 years / Male INDICATIONS: Stroke alert, right sided weakness. CLINICAL DATA: This is the patient's initial encounter. Patient reports that signs and symptoms have been present for 1 day and indicates a pain score of Nonresponsive. MEDICAL/SURGICAL HISTORY: Non-responsive. Non-responsive. RADIATION DOSE: 10.62 CTDI (mGy) ; Combined studies COMPARISON: No prior exams available for comparison. TECHNIQUE: Volumetric scanning was performed using a multirow detector CT scanner during bolus infus ion of 74 ml Visipaque 320 (iodixanol) nonionic water-soluble contrast as a cumulative dose for mult iple exams. The data was postprocessed with a variety of visualization algorithms including full-vo lume maximum intensity projection, multiplanar sliding thin-slab reformation, curved-planar reformati on, and surface-rendering techniques. Using automated exposure control and adjustment of the mA and/ or kV according to patient size, radiation dose was kept as low as reasonably achievable to obtain op timal diagnostic quality images. DICOM format image data is available electronically for review and comparison. Percent stenosis is calculated using the diameter of the stenotic region over the diameter of the nor mal distal internal carotid artery. FINDINGS: Esophagus is distended and fluid-filled. There is previous left occipital craniectomy. Aortic Arch: There is a three-vessel origin of the great vessels from the aorta. No evidence of ost ial narrowing Right Carotid: The common carotid artery is intact. The carotid bulb has a normal configuration wit hout ulceration or narrowing. The internal carotid artery lumen is smooth without stenosis. The ext ernal carotid artery is intact. Left Carotid: The common carotid artery is intact. The carotid bulb has a normal configuration with out ulceration or narrowing. The internal carotid artery lumen is smooth without stenosis. The exte rnal carotid artery is intact. Vertebrals: The vertebral arteries have a symmetric diameter. No stenotic lesions are seen. CONCLUSION: 1. Mild atherosclerosis without evidence for hemodynamically significant stenosis. Electronically signed by: Curt Carvajal MD 11/20/2017 4:15 PM EDT
--- NOTE | 2017-11-20 16:38 | P.CONNEU ---
History of Present Illness Service: Neurology Primary Care Provider: Shelby Mckeon MD Family Provider: Shelby Mckeon MD Chief Complaint: Stroke alert History of Present Illness: 62-year-old male presents for various neurologic symptoms. They began 5 hours prior to arrival to the ER therefore not IV TPA candidate. In addition various diffuse complaints some of which are not localizing. He complains of severe back pain is interested in pain medications for back pain overall states she has been having a headache in addition to right arm and right leg pain with some right leg weakness. He states he had a vascular surgery performed of his head and neck in [place]; and that he had a stroke. He is a poor historian unable to give details of what type of stroke or what kind intervention was performed no records available. He states he does not take any pain medication Review of Systems All other systems reviewed negative except as stated in HPI [facility] - History History Provided By: Patient - Medical History Medical History: Medical History (Last Updated 11/20/17 @ 15:43 by Kemi Zhu) CAD (coronary artery disease) CVA (cerebral vascular accident) HTN (hypertension) with goal to be determined - Surgical History Surgical History: Surgical History (Last Updated 11/20/17 @ 15:43 by Kemi Zhu) H/O neck surgery Hx of cardiac cath - Tobacco History Second Hand Smoke Exposure: Yes Tobacco Use In Past 30 Days: Yes Smoking Status: Current every day smoker Tobacco Type: Cigarettes - Alcohol History How Often Do You Have a Drink Containing Alcohol: Never - Substance Use History Substance History: No History of Abuse - Travel History Recent Travel in the [facility] Within the Last 8 Weeks: No Recent Travel Out of the Country Within the Last 8 Weeks: No - Immunization History Tetanus Immunization: Unsure Hx Influenza Vaccine This Season: No Medications and Allergies Active Medications: Active Medications Sodium Chloride (Ns Inj) 1,000 mls @ 70 mls/hr IV.CONT .[id number] [facility] Last Admin: 11/20/17 16:03 Dose: 70 mls/hr Allergies Allergy/AdvReac Type Severity Reaction Status Date / Time No Known Allergies Allergy Verified 11/20/17 14:13 Home Medications Medication Instructions Recorded Confirmed Type amlodipine 10 mg PO DAILY 11/20/17 11/20/17 History metoprolol tartrate 100 mg PO DAILY 11/20/17 11/20/17 History oxycodone-acetaminophen 1 tab PO Q4H PRN 11/20/17 11/20/17 History Exam Vital signs: Vital Signs 11/20/17 14:04 11/20/17 15:20 11/20/17 15:28 Temperature 98.1 F Pulse Rate 62 63 Respiratory Rate 18 18 Blood Pressure 162/79 H 141/83 H Pulse Oximetry 97 98 98 11/20/17 15:33 11/20/17 15:41 11/20/17 16:00 Temperature Pulse Rate 60 64 55 L Respiratory Rate 16 16 16 Blood Pressure 130/79 146/85 H 148/83 H Pulse Oximetry 99 99 99 Intake & Output 11/19/17 11/20/17 11/20/17 18:59 06:59 18:59 Weight 74.843 kg Narrative: GENERAL: in NAD, SKIN: Warm and dry. HEAD: Atraumatic. Normocephalic. EYES: Pupils equal and round. No scleral icterus. ENT: No nasal bleeding or discharge. Mucous membranes pink and moist. NECK: Trachea midline. No JVD. CARDIOVASCULAR: Regular rate and rhythm. RESPIRATORY: No accessory muscle use. GASTROINTESTINAL: Abdomen soft, non-tender, nondistended. MUSCULOSKELETAL: Extremities without clubbing, cyanosis, or edema. No obvious deformities. NEUROLOGICAL: Awake and alert. Slightly dysarthric speech, mildly disconjugate gaze states he sees double at times states he has had this before, visual wilkinson otherwise grossly full, no facial asymmetry tongue midline, right hemiparesis right upper extremity strength 3-4 out of 5, right lower extremity 1 -2 out of 5 able to raise left arm and leg to gravity without difficulty gait not assessed secondary fall risk, no neglect, mild right-sided hyperreflexia PSYCHIATRIC: Appropriate mood and affect; insight and judgment normal. - Constitutional no acute distress - Routine HEENT Exam Head: Present: normocephalic Results - Labs CBC & Chem 7: 11/20/17 15:25 Labs: Laboratory Results - last 24 hr 11/20/17 11/20/17 11/20/17 15:23 15:25 15:25 WBC 4.3 RBC 3.79 L Hgb 13.1 POC Hgb (Calc) Hct 38.1 L POC Hct MCV 100.6 H MCH 34.5 H MCHC 34.3 RDW 13.8 Plt Count 163 MPV 9.7 Neut % (Auto) 43.5 Lymph % (Auto) 40.2 Mower % (Auto) 11.2 H Eos % (Auto) 4.5 H Baso % (Auto) 0.6 Neut # (Auto) 1.9 Lymph # (Auto) 1.7 Mower # (Auto) 0.5 Eos # (Auto) 0.2 Baso # (Auto) 0.0 WBC Differential . Differential Comment Auto diff final PT 10.0 INR 1.0 APTT 27.6 Fibrinogen 282 POC Sodium POC Potassium POC Chloride POC BUN POC Creatinine POC Glucose 74 Total Creatine Kinase Troponin I Blood Type Blood Type Recheck Antibody Screen 11/20/17 11/20/17 15:25 15:25 WBC RBC Hgb POC Hgb (Calc) 12.6 L Hct POC Hct 37.0 L MCV MCH MCHC RDW Plt Count MPV Neut % (Auto) Lymph % (Auto) Mower % (Auto) Eos % (Auto) Baso % (Auto) Neut # (Auto) Lymph # (Auto) Mower # (Auto) Eos # (Auto) Baso # (Auto) WBC Differential Differential Comment PT INR APTT Fibrinogen POC Sodium 144 POC Potassium 4.8 POC Chloride 107 POC BUN 18 POC Creatinine 0.7 POC Glucose 67 L Total Creatine Kinase 102 Troponin I Less than 0.02 L Blood Type O Positive Blood Type Recheck Required Antibody Screen Negative - Imaging Impressions Chest X-Ray 11/20/17 15:20 CONCLUSION: Negative examination. Head CT 11/20/17 15:20 CONCLUSION: 1. No acute findings. Report was called by [ Dr. Carvajal to Dr. Zhu at 3:38pm on 11/20/17.] Head CTA 11/20/17 15:20 CONCLUSION: 1. Negative CTA Head. Neck CTA 11/20/17 15:20 CONCLUSION: 1. Mild atherosclerosis without evidence for hemodynamically significant stenosis. Review/Management - Diagnosis (1) Acute focal neurological deficit Code(s): R29.818 - Other symptoms and signs involving the nervous system Status: Acute Current Visit: Yes (2) Chronic pain Code(s): G89.29 - Other chronic pain Status: Acute Current Visit: Yes - Review/Management Plan: Diffuse complaints. Possible he could have small lacunar medullary stroke resulting in right-sided pain and weakness CTA brain carotids no significant vaso-occlusive disease mild at the current atherosclerotic disease Recommendations MRI C-spine MRI brain Carotid imaging Echo Lipid, TSH, B12, HbA1c Therapy Telemetry SCDs Pain control Aspirin
[2017-11-20] MEDS ORDERED: Butalbital/APAP/Caff 50/325/40 MG Tablet PO PRN (16:40)
[2017-11-20] MEDS ORDERED: oxyCODONE/Acetaminophen 10/325 Tablet PO ONE (16:47)
--- NOTE | 2017-11-20 17:25 | P.HP ---
History of Present Illness Service: [facility]ist service Primary Care Physician: Shelby Mckeon MD Chief Complaint: Right-sided weakness History of Present Illness: History obtained from patient and family at bedside interpreting for us Patient is a 62-year-old right-handed male with known history of hypertension, history of CVA 2 years ago, history of chronic back pain and apparently had some craniectomy questionable per family sounds like there was a blood clot evacuation done patient was with baseline right-sided weakness however he still up ambulatory and uses a cane for long walks.. This morning patient states that around 1030 complaining of right-sided pain and feeling of numbness on the entire right side of the body associated with posterior headache. Denies any nausea vomiting. Patient tried to get up twice and fell. And was brought in here for further evaluation. Denies any fever chills chest pain shortness of breath. Denies any dysuria no incontinence noted. Patient still continues to smoke 3 cigarettes/day. Review of Systems Denies any fever chills denies any paroxysmal nocturnal dyspnea or orthopnea. Patient baseline independent but occasionally uses a cane with baseline residual right-sided weakness. Denies any dysuria denies any melena or hematochezia denies any seizures. [facility] - History History Provided By: Patient - Medical History Medical History: Medical History (Last Reviewed 11/21/17 @ 08:49 by Kirby Hernández) CAD (coronary artery disease) CVA (cerebral vascular accident) HTN (hypertension) with goal to be determined - Surgical History Surgical History: Surgical History (Last Reviewed 11/21/17 @ 08:49 by Kirby Hernández) H/O neck surgery Hx of cardiac cath - Tobacco History Second Hand Smoke Exposure: Yes Tobacco Use In Past 30 Days: Yes Smoking Status: Current every day smoker Tobacco Type: Cigarettes - Alcohol History How Often Do You Have a Drink Containing Alcohol: Never - Substance Use History Substance History: No History of Abuse - Travel History Recent Travel in the [place] Within the Last 8 Weeks: No Recent Travel Out of the Country Within the Last 8 Weeks: No - Immunization History Tetanus Immunization: Unsure Hx Influenza Vaccine This Season: No Medications and Allergies Active Medications: Active Medications Acetaminophen/Butalbital/Caffeine (Fioricet 50-325-40) 1 tab PO Q8H PRN PRN Reason: HEADACHE Aspirin (Aspirin) 325 mg PO DAILY SABA Heparin Sodium (Porcine) (Heparin Inj) 5,000 units SQ Q12HR [facility] Sodium Chloride (Ns Inj) 1,000 mls @ 70 mls/hr IV.CONT .[id number] [facility] Last Admin: 11/20/17 16:03 Dose: 70 mls/hr Allergies Allergy/AdvReac Type Severity Reaction Status Date / Time No Known Allergies Allergy Verified 11/20/17 14:13 Home Medications Medication Instructions Recorded Confirmed Type amlodipine 10 mg PO DAILY 11/20/17 11/20/17 History metoprolol tartrate 100 mg PO DAILY 11/20/17 11/20/17 History oxycodone-acetaminophen 1 tab PO Q4H PRN 11/20/17 11/20/17 History Exam Vital signs: Vital Signs 11/20/17 14:04 11/20/17 15:20 11/20/17 15:28 Temperature 98.1 F Pulse Rate 62 63 Respiratory Rate 18 18 Blood Pressure 162/79 H 141/83 H Pulse Oximetry 97 98 98 11/20/17 15:33 11/20/17 15:41 11/20/17 16:00 Temperature Pulse Rate 60 64 55 L Respiratory Rate 16 16 16 Blood Pressure 130/79 146/85 H 148/83 H Pulse Oximetry 99 99 99 Intake & Output 11/19/17 11/20/17 11/20/17 18:59 06:59 18:59 Weight 74.843 kg Narrative: Awake alert oriented x3 vital signs stable HEENT exam anicteric sclerae pink palpebral conjunctiva Neck supple no nuchal rigidity no bruit Chest lungs bilateral breath sounds equal no rales no wheezes Regular rhythm no murmur Abdomen is soft nontender with good bowel sounds extremities no clubbing no cyanosis no edema neurologic exam ANO x3 clear speech Mongolian-speaking Pupils equally reactive to light Extraocular muscles full range of motion Good gag reflex tongue midline Motor exam with right-sided hemiparesis around 4/5 Grossly no sensory deficit Gait testing deferred at this time. Results - Labs CBC & Chem 7: 11/20/17 15:25 Labs: Laboratory Results - last 24 hr 11/20/17 11/20/17 11/20/17 15:23 15:25 15:25 WBC 4.3 RBC 3.79 L Hgb 13.1 POC Hgb (Calc) Hct 38.1 L POC Hct MCV 100.6 H MCH 34.5 H MCHC 34.3 RDW 13.8 Plt Count 163 MPV 9.7 Neut % (Auto) 43.5 Lymph % (Auto) 40.2 [place] % (Auto) 11.2 H Eos % (Auto) 4.5 H Baso % (Auto) 0.6 Neut # (Auto) 1.9 Lymph # (Auto) 1.7 [place] # (Auto) 0.5 Eos # (Auto) 0.2 Baso # (Auto) 0.0 WBC Differential . Differential Comment Auto diff final PT 10.0 INR 1.0 APTT 27.6 Fibrinogen 282 POC Sodium POC Potassium POC Chloride POC BUN POC Creatinine POC Glucose 74 Total Creatine Kinase Troponin I Blood Type Blood Type Recheck Antibody Screen 11/20/17 11/20/17 15:25 15:25 WBC RBC Hgb POC Hgb (Calc) 12.6 L Hct POC Hct 37.0 L MCV MCH MCHC RDW Plt Count MPV Neut % (Auto) Lymph % (Auto) [place] % (Auto) Eos % (Auto) Baso % (Auto) Neut # (Auto) Lymph # (Auto) [place] # (Auto) Eos # (Auto) Baso # (Auto) WBC Differential Differential Comment PT INR APTT Fibrinogen POC Sodium 144 POC Potassium 4.8 POC Chloride 107 POC BUN 18 POC Creatinine 0.7 POC Glucose 67 L Total Creatine Kinase 102 Troponin I Less than 0.02 L Blood Type O Positive Blood Type Recheck Required Antibody Screen Negative - Imaging Impressions Chest X-Ray 11/20/17 15:20 CONCLUSION: Negative examination. Head CT 11/20/17 15:20 CONCLUSION: 1. No acute findings. Report was called by [ Dr. Carvajal to Dr. Zhu at 3:38pm on 11/20/17.] Head CTA 11/20/17 15:20 CONCLUSION: 1. Negative CTA Head. Neck CTA 11/20/17 15:20 CONCLUSION: 1. Mild atherosclerosis without evidence for hemodynamically significant stenosis. Caprini VTE Risk Assessment Caprini VTE Risk Assessment: Moderate/High Risk (score >= 2) Caprini Risk Assessment Model: Point Value = 1 Point Value = 2 Point Value = 3 Point Value = 5 Age 41-60 Minor surgery BMI > 25 kg/m2 Swollen legs Varicose veins or History of unexplained or recurrent spontaneous Oral contraceptives or hormone replacement Sepsis (< 1 month) Serious lung disease, including pneumonia (< 1 month) Abnormal pulmonary function Acute myocardial infarction Congestive heart failure (< 1 month) History of inflammatory bowel disease Medical patient at bed rest Age 61-74 Arthroscopic surgery Major open surgery (> 45 min) Laparoscopic surgery (> 45 min) Malignancy Confined to bed (> 72 hours) Immobilizing plaster cast Central venous access Age >= 75 History of VTE Family history of VTE Factor V Leiden Prothrombin [id number] Lupus anticoagulant Anticardiolipin antibodies Elevated serum homocysteine Heparin-induced thrombocytopenia Other congenital or acquired thrombophilia Stroke (< 1 month) Elective arthroplasty Hip, pelvis, or leg fracture Acute spinal cord injury (< 1 month) Prophylaxis Regimen: Total Risk Factor Score Risk Level Prophylaxis Regimen 0-1 Low Early ambulation 2 Moderate Order ONE of the following: *Sequential Compression Device (SCD) *Heparin 5000 units SQ BID 3-4 Higher Order ONE of the following medications: *Heparin 5000 units SQ TID *Enoxaparin/Lovenox 40 mg SQ daily (WT < 150 kg, CrCl > 30 mL/min) *Enoxaparin/Lovenox 30 mg SQ daily (WT < 150 kg, CrCl > 10-29 mL/min) *Enoxaparin/Lovenox 30 mg SQ BID (WT < 150 kg, CrCl > 30 mL/min) AND/OR *Sequential Compression Device (SCD) 5 or more Highest Order ONE of the following medications: *Heparin 5000 units SQ TID (Preferred with Epidurals) *Enoxaparin/Lovenox 40 mg SQ daily (WT < 150 kg, CrCl > 30 mL/min) *Enoxaparin/Lovenox 30 mg SQ daily (WT < 150 kg, CrCl > 10-29 mL/min) *Enoxaparin/Lovenox 30 mg SQ BID (WT < 150 kg, CrCl > 30 mL/min) AND *Sequential Compression Device (SCD) Assessment and Plan - Plan 62-year-old right-handed male presenting TIA presenting with right-sided weakness-status fall x2 this a.m. History of previous CVA with baseline right-sided hemiparesis from 2 years ago. -Patient now states strength is near baseline. -PT OT eval.- baseline occasionally uses a cane - Patient was seen by Dr. Montiel. Workup in progress. = Head CT , neck CTA was negative. - MRI brain, c spines ordered -Echo was requested. -Check lipid panel -Started on on aspirin History of hypertension. - 12 lead EKG reviewed - Continue on amlodipine 10 mg daily- start in am - clonidine 0.1 mg po q 6 prn with parameters - telemetry - consider restarting Metoprolol at a lower dose History of chronic back pain/headache - continue on his oxycodone 10/325 1 tab 4 times a day as needed Smoker. Patient counseled on smoking cessation Heparin subcu for DVT prophylaxis CM consult for DC planning
[2017-11-20 17:44] LABS: Chol/HDL Ratio 2.83 Ratio; HDL Cholesterol 50.1 mg/dL (40.0-60.0); Thyroid Stimulating Hormone 0.405 uIU/mL (0.358-3.740)
[2017-11-20 18:21] LABS: Amphetamine Screen,Urine Neg (Neg); Barbiturate Screen,Urine Neg (Neg); Cannabinoid Screen,Urine Neg (Neg); Cocaine Screen,Urine Neg (Neg)
[2017-11-20 18:23] LABS: Opiate Screen,Urine Neg (Neg)
[2017-11-20 18:24] LABS: Bilirubin,Urine Negative (Negative); Clarity,Urine Clear (Clear); Color,Urine Yellow (Yellw/Straw); Glucose,Urine (UA) Negative (Negative); Leukocyte Esterase,Urine Negative (Negative); Mucus,Urine Few /lpf (Occasional); Nitrite,Urine Negative (Negative); Specific Gravity,Urine 1.043 (1.002-1.035)
--- NOTE | 2017-11-20 18:25 | MR ---
EXAM DATE: 11/20/2017 6:18 PM EDT AGE/SEX: 62 years / Male INDICATIONS: Right sided weakness. Right upper extremity pain. CLINICAL DATA: This is the patient's initial encounter. Patient reports that signs and symptoms have been present for 1 day and indicates a pain score of 4/10. MEDICAL/SURGICAL HISTORY: Cardiovascular disease. Cerebrovascular disease. Hypertension. [place] n resection. Coronary artery stent. Appendectomy. Tonsillectomy. COMPARISON: [facility] [place], CT HEAD W/O CONTRAST, 11/20/2017. . TECHNIQUE: Multiplanar, multisequence examination of the brain was performed without contrast. FINDINGS: There is no evidence for intracranial hemorrhage, mass effect, mass lesions, edema, or extra-axial fl uid collections. There are no signs of acute infarction for technique. The diffusion portion is unr emarkable. Slight degree of brain atrophy is seen. Slight periventricular white matter changes are se en nonspecific mostly consistent with chronic small vessel ischemic changes. CONCLUSION: Chronic small vessel ischemic and atrophic changes. Electronically signed by: Gisell Vora MD 11/20/2017 6:24 PM EDT
--- NOTE | 2017-11-20 18:49 | MR ---
EXAM DATE: 11/20/2017 6:43 PM EDT AGE/SEX: 62 years / Male INDICATIONS: Extremity numbness. Right upper extremity numbness and weakness. CLINICAL DATA: This is the patient's initial encounter. Patient reports that signs and symptoms have been present for 1 day and indicates a pain score of 4/10. MEDICAL/SURGICAL HISTORY: Cardiovascular disease. Cerebrovascular disease. Hypertension. [place] n resection. Coronary artery stent. Appendectomy. Tonsillectomy. COMPARISON: No prior exams available for comparison. TECHNIQUE: Multiplanar, multisequence MRI examination of the cervical spine was performed without co ntrast. FINDINGS: The marrow signal appears intact except for scattered degenerative change, and the spinal cord appear s intact for technique. C2-C3: No appreciable compromise to the thecal sac, exiting nerve roots are seen. The neural foramin a are patent bilaterally. No appreciable thecal sac stenosis is seen. C3-C4: There is moderate to severe neural foramina compromise on the right due to asymmetrical bulgi ng disc and hypertrophic changes. There is impingement on the exiting C4 nerve root on the right to a significant degree with compromise to the anterior CSF space, however overall no significant thecal sac stenosis is seen. Slight degenerative changes are present in the disc space and facets. C4-C5: Moderate degenerative changes are present in the disc space and facets. There is slight neura l foramina compromise on the left due to asymmetrical bulging disc and hypertrophic changes. Slight bulging disc and hypertrophic changes are seen with indentation on the thecal sac and no significant compromise to the thecal sac. C5-C6: Moderate degenerative changes are present in the disc space and facets. There is moderate abena ral foramina compromise bilaterally due to bulging disc and hypertrophic changes. There is anterior extradural impression and effacement of the anterior CSF space due to bulging disc and hypertrophic c hanges, however overall no significant thecal sac stenosis is seen. C6-C7: Moderate degenerative changes are present in the disc space and facets. There is slight neura l foramina compromise bilaterally due to bulging disc and hypertrophic changes. No significant theca l sac stenosis is seen. C7-T1: No appreciable compromise to the thecal sac, exiting nerve roots are seen. The neural forami na are patent bilaterally. No appreciable thecal sac stenosis is seen. CONCLUSION: Neural foraminal compromise right C3-4, left C4-5, bilateral C5-6, bilateral C6-7 and ef facement of the anterior CSF space C5-6. No significant thecal sac stenosis. Electronically signed by: Gisell Vora MD 11/20/2017 6:48 PM EDT
[2017-11-20] MEDS: Heparin - SQ 10,000 UNITS/ML Vial SQ SCH (20:23)
[2017-11-21] MEDS: Sod Chloride 0.9% Inj 1,000 ML IV.CONT SCH ×3 (07:34→21:16)
--- NOTE | 2017-11-21 08:06 | P.PN ---
Subjective Interval history: Patient reports significant pain overnight despite home narcotics, back pain is worsening from baseline with R leg weakness. Patient is concerned that he cannot get relief or sleep when he is at home. reports that this is not his typical behavior or pain level. Physical Exam Vital signs: Vital Signs 11/20/17 14:04 11/20/17 15:20 11/20/17 15:28 Temperature 98.1 F Pulse Rate 62 63 Respiratory Rate 18 18 Blood Pressure 162/79 H 141/83 H Pulse Oximetry 97 98 98 11/20/17 15:33 11/20/17 15:41 11/20/17 16:00 Temperature Pulse Rate 60 64 55 L Respiratory Rate 16 16 16 Blood Pressure 130/79 146/85 H 148/83 H Pulse Oximetry 99 99 99 11/20/17 20:00 11/20/17 20:39 11/20/17 23:54 Temperature 98.4 F 98.4 F Pulse Rate 54 L 55 L Respiratory Rate 17 17 Blood Pressure 127/72 119/74 Pulse Oximetry 96 96 95 11/21/17 00:25 11/21/17 04:00 11/21/17 07:38 Temperature 98.2 F 97.7 F Pulse Rate 53 L 55 L 58 L Respiratory Rate 18 18 Blood Pressure 128/71 139/74 Pulse Oximetry 94 L 95 Intake & Output 11/20/17 11/21/17 11/21/17 18:59 06:59 18:59 Output Total 700 / 700 Balance -700 / -700 Weight 74.843 kg 82.1 kg Output: Urine 700 / 700 Narrative: GENERAL: well nourished male, in mild distress due to pain SKIN: Warm and dry. HEENT: Atraumatic. Normocephalic. Pupils equal and round. No scleral icterus. MOM. ENT: No nasal bleeding or discharge. Mucous membranes pink and moist. NECK: Trachea midline. No JVD. No nuchal rigidity. CARDIOVASCULAR: Regular rate and rhythm. RESPIRATORY: No accessory muscle use. GASTROINTESTINAL: Abdomen soft, non-tender, nondistended. MUSCULOSKELETAL: Extremities without clubbing, cyanosis, or edema. No obvious deformities. Significant TTP of Lumbar spine. NEUROLOGICAL: AAOX3. No facial asymmetry, tongue midline, right hemiparesis right upper extremity strength 4/5, right lower extremity 2/5; LUE and LLE 5/5. PSYCHIATRIC: Appropriate mood and affect; insight and judgment normal. Results - Labs CBC & Chem 7: 11/20/17 15:25 Laboratory Results - last 24 hr 11/20/17 11/20/17 11/20/17 15:23 15:25 15:25 WBC 4.3 RBC 3.79 L Hgb 13.1 POC Hgb (Calc) Hct 38.1 L POC Hct MCV 100.6 H MCH 34.5 H MCHC 34.3 RDW 13.8 Plt Count 163 MPV 9.7 Neut % (Auto) 43.5 Lymph % (Auto) 40.2 [place] % (Auto) 11.2 H Eos % (Auto) 4.5 H Baso % (Auto) 0.6 Neut # (Auto) 1.9 Lymph # (Auto) 1.7 [place] # (Auto) 0.5 Eos # (Auto) 0.2 Baso # (Auto) 0.0 WBC Differential . Differential Comment Auto diff final PT 10.0 INR 1.0 APTT 27.6 Fibrinogen 282 POC Sodium POC Potassium POC Chloride POC BUN POC Creatinine POC Glucose 74 Total Creatine Kinase Troponin I Triglycerides Cholesterol LDL Cholesterol, Calc HDL Cholesterol Cholesterol/HDL Ratio Vitamin B12 TSH Urine Color Urine Clarity Urine pH Ur Specific [place] Urine Protein Urine Glucose (UA) Urine Ketones Urine Occult Blood Urine Nitrate Urine Bilirubin Urine Urobilinogen Ur Leukocyte Esterase Urine RBC Urine WBC Urine Mucus Micro UA Comment Ur Microscopic Review Urine Culture Comments Urine Opiates Screen Ur Barbiturates Screen Ur Amphetamines Screen U Benzodiazepines Scrn Urine Cocaine Screen U Cannabinoids Screen Blood Type Blood Type Recheck Antibody Screen 11/20/17 11/20/17 11/20/17 15:25 15:25 15:25 WBC RBC Hgb POC Hgb (Calc) 12.6 L Hct POC Hct 37.0 L MCV MCH MCHC RDW Plt Count MPV Neut % (Auto) Lymph % (Auto) [place] % (Auto) Eos % (Auto) Baso % (Auto) Neut # (Auto) Lymph # (Auto) [place] # (Auto) Eos # (Auto) Baso # (Auto) WBC Differential Differential Comment PT INR APTT Fibrinogen POC Sodium 144 POC Potassium 4.8 POC Chloride 107 POC BUN 18 POC Creatinine 0.7 POC Glucose 67 L Total Creatine Kinase 102 Troponin I Less than 0.02 L Triglycerides 103 Cholesterol 142 LDL Cholesterol, Calc 71 HDL Cholesterol 50.1 Cholesterol/HDL Ratio 2.83 Vitamin B12 283 TSH 0.405 Urine Color Urine Clarity Urine pH Ur Specific [place] Urine Protein Urine Glucose (UA) Urine Ketones Urine Occult Blood Urine Nitrate Urine Bilirubin Urine Urobilinogen Ur Leukocyte Esterase Urine RBC Urine WBC Urine Mucus Micro UA Comment Ur Microscopic Review Urine Culture Comments Urine Opiates Screen Ur Barbiturates Screen Ur Amphetamines Screen U Benzodiazepines Scrn Urine Cocaine Screen U Cannabinoids Screen Blood Type O Positive Blood Type Recheck Required Antibody Screen Negative 11/20/17 11/20/17 17:50 17:50 WBC RBC Hgb POC Hgb (Calc) Hct POC Hct MCV MCH MCHC RDW Plt Count MPV Neut % (Auto) Lymph % (Auto) [place] % (Auto) Eos % (Auto) Baso % (Auto) Neut # (Auto) Lymph # (Auto) [place] # (Auto) Eos # (Auto) Baso # (Auto) WBC Differential Differential Comment PT INR APTT Fibrinogen POC Sodium POC Potassium POC Chloride POC BUN POC Creatinine POC Glucose Total Creatine Kinase Troponin I Triglycerides Cholesterol LDL Cholesterol, Calc HDL Cholesterol Cholesterol/HDL Ratio Vitamin B12 TSH Urine Color Yellow Urine Clarity Clear Urine pH 6.0 Ur Specific [place] 1.043 H Urine Protein Negative Urine Glucose (UA) Negative Urine Ketones Negative Urine Occult Blood Negative Urine Nitrate Negative Urine Bilirubin Negative Urine Urobilinogen 2.0 H Ur Leukocyte Esterase Negative Urine RBC 3 Urine WBC Less than 1 Urine Mucus Few H Micro UA Comment Culture not ind Ur Microscopic Review Not Reportable Urine Culture Comments Culture not ind Urine Opiates Screen Neg Ur Barbiturates Screen Neg Ur Amphetamines Screen Neg U Benzodiazepines Scrn Neg Urine Cocaine Screen Neg U Cannabinoids Screen Neg Blood Type Blood Type Recheck Antibody Screen - Imaging Impressions Head MRI 11/20/17 00:00 CONCLUSION: Chronic small vessel ischemic and atrophic changes. Chest X-Ray 11/20/17 15:20 CONCLUSION: Negative examination. Head CT 11/20/17 15:20 CONCLUSION: 1. No acute findings. Report was called by [ Dr. Carvajal to Dr. Zhu at 3:38pm on 11/20/17.] Head CTA 11/20/17 15:20 CONCLUSION: 1. Negative CTA Head. Neck CTA 11/20/17 15:20 CONCLUSION: 1. Mild atherosclerosis without evidence for hemodynamically significant stenosis. Cervical Spine MRI 11/20/17 16:39 CONCLUSION: Neural foraminal compromise right C3-4, left C4-5, bilateral C5-6, bilateral C6-7 and effacement of the anterior CSF space C5-6. No significant thecal sac stenosis. Assessment and Plan - Plan This is a 62-year-old HM with PMHX of HTN, CVA with residual R sided weakness admitted for new onset of increased weakness worsened from baseline, HD#2 1. Hx of CVA- concern for possible TIA Presenting with increased right-sided weakness History of previous CVA with baseline right-sided hemiparesis from 2 years ago PT/OT eval Managed by neuro- appreciate assistance with mgmt Cont. ASA and started on statin Imaging: Head CT Neg, Neck CTA Neg Cervical Spine MRI: Neural foraminal compromise right C3-4, left C4-5, bilateral C5-6, bilateral C6-7 and effacement of the anterior CSF space C5-6. No significant thecal sac stenosis. MRI brain pending Echo pending Per Neuro reccs: Possible small lacunar medullary stroke resulting in right-sided pain and weakness. CTA brain carotids no significant vaso-occlusive disease mild at the current atherosclerotic disease. MRI C-spine images reviewed no cord lesion, spondylitic changes mild disc herniation would explain his right leg weakness. Acute on chronic pain appears to be his major problem. Follow-up MRI T and L- spine to exclude a radiculopathy, Pain control, therapy. 2. Chronic Back Pain, worsened from baseline with increased RLE pain/weakness Will get Thoracis/Lumbar MRI Holding Hydrocodone as no relief when given Morphine PRN 3. Hx of HTN Continue home Amlodipine and Metoprolol Clonidine PRN Telemetry 4. Smoker: counseled on smoking cessation and risks discussed. 5. DVT PPX: Heparin 6. Dispo: Pending imaging results Code Status: full Discussed Condition With: patient and
[2017-11-21] MEDS: amLODIPine 10 MG Tablet PO SCH (08:52)
[2017-11-21] MEDS: Heparin - SQ 10,000 UNITS/ML Vial SQ SCH ×2 (08:52→20:09)
[2017-11-21] MEDS: Aspirin 325 MG Tablet PO SCH (08:52)
[2017-11-21] MEDS ORDERED: Metoprolol Tartrate 100 MG Tablet PO SCH (09:00)
[2017-11-21] MEDS ORDERED: Morphine Sulfate Inj 2 MG/ML Vial IV.PUSH ONE (09:05)
--- NOTE | 2017-11-21 10:30 | P.PNNEU ---
Subjective Subjective Comments: No cp, no dyspnea, no logan, no focal weakness, no vision loss. Complains of right leg pain weakness low back pain feels arm is better Active Medications: Active Medications Acetaminophen/Butalbital/Caffeine (Fioricet 50-325-40) 1 tab PO Q8H PRN PRN Reason: HEADACHE Last Admin: 11/20/17 21:48 Dose: 1 tab Hydrocodone Bitart/Acetaminophen ([place] 10/325) 1 tab PO Q6H PRN PRN Reason: BACK PAIN Last Admin: 11/21/17 01:58 Dose: 1 tab Amlodipine Besylate (Norvasc) 10 mg PO DAILY [facility] Last Admin: 11/21/17 08:52 Dose: 10 mg Aspirin (Aspirin) 325 mg PO DAILY [facility] Last Admin: 11/21/17 08:52 Dose: 325 mg Atorvastatin Calcium (Lipitor) 10 mg PO DAILY [facility] Last Admin: 11/21/17 08:52 Dose: 10 mg Clonidine HCl (Catapres) 0.1 mg PO Q6H PRN PRN Reason: Sbp>170, Dbp>90 Heparin Sodium (Porcine) (Heparin Inj) 5,000 units SQ Q12HR [facility] Last Admin: 11/21/17 08:52 Dose: 5,000 units Sodium Chloride (Ns Inj) 1,000 mls @ 70 mls/hr IV.CONT .[id number] [facility] Last Infusion: 11/21/17 07:34 Dose: 70 mls/hr Metoprolol Tartrate (Lopressor) 100 mg PO DAILY [facility] Last Admin: 11/21/17 08:41 Dose: Not Given Allergies/Adverse Reactions: Allergies Allergy/AdvReac Type Severity Reaction Status Date / Time No Known Allergies Allergy Verified 11/20/17 14:13 Physical Exam Vital signs: Vital Signs 11/20/17 14:04 11/20/17 15:20 11/20/17 15:28 Temperature 98.1 F Pulse Rate 62 63 Respiratory Rate 18 18 Blood Pressure 162/79 H 141/83 H Pulse Oximetry 97 98 98 11/20/17 15:33 11/20/17 15:41 11/20/17 16:00 Temperature Pulse Rate 60 64 55 L Respiratory Rate 16 16 16 Blood Pressure 130/79 146/85 H 148/83 H Pulse Oximetry 99 99 99 11/20/17 20:00 11/20/17 20:39 11/20/17 23:54 Temperature 98.4 F 98.4 F Pulse Rate 54 L 55 L Respiratory Rate 17 17 Blood Pressure 127/72 119/74 Pulse Oximetry 96 96 95 11/21/17 00:25 11/21/17 04:00 11/21/17 07:38 Temperature 98.2 F 97.7 F Pulse Rate 53 L 55 L 58 L Respiratory Rate 18 18 Blood Pressure 128/71 139/74 Pulse Oximetry 94 L 95 11/21/17 08:45 Temperature Pulse Rate Respiratory Rate Blood Pressure Pulse Oximetry 95 Intake & Output 11/20/17 11/21/17 11/21/17 18:59 06:59 18:59 Output Total 700 / 700 Balance -700 / -700 Weight 74.843 kg 82.1 kg Output: Urine 700 / 700 Narrative: GENERAL: in NAD, SKIN: Warm and dry. HEAD: Atraumatic. Normocephalic. EYES: Pupils equal and round. No scleral icterus. ENT: No nasal bleeding or discharge. Mucous membranes pink and moist. NECK: Trachea midline. No JVD. CARDIOVASCULAR: Regular rate and rhythm. RESPIRATORY: No accessory muscle use. GASTROINTESTINAL: Abdomen soft, non-tender, nondistended. MUSCULOSKELETAL: Extremities without clubbing, cyanosis, or edema. No obvious deformities. NEUROLOGICAL: Awake and alert. Slightly dysarthric speech, mildly disconjugate gaze states he sees double at times states he has had this before, visual [place] otherwise grossly full, no facial asymmetry tongue midline, right hemiparesis right upper extremity strength 4 out of 5, right lower extremity 1- 2 out of 5; appears to be proportional the patient effort able to raise left arm and leg to gravity without difficulty gait not assessed secondary fall risk , no neglect, mild right-sided hyperreflexia PSYCHIATRIC: Appropriate mood and affect; insight and judgment normal. - Constitutional no acute distress - Routine HEENT Exam Head: Present: normocephalic Eye: Present: EOMI Objective Laboratory Results - last 24 hr 11/20/17 11/20/17 11/20/17 15:23 15:25 15:25 WBC 4.3 RBC 3.79 L Hgb 13.1 POC Hgb (Calc) Hct 38.1 L POC Hct MCV 100.6 H MCH 34.5 H MCHC 34.3 RDW 13.8 Plt Count 163 MPV 9.7 Neut % (Auto) 43.5 Lymph % (Auto) 40.2 [place] % (Auto) 11.2 H Eos % (Auto) 4.5 H Baso % (Auto) 0.6 Neut # (Auto) 1.9 Lymph # (Auto) 1.7 [place] # (Auto) 0.5 Eos # (Auto) 0.2 Baso # (Auto) 0.0 WBC Differential . Differential Comment Auto diff final PT 10.0 INR 1.0 APTT 27.6 Fibrinogen 282 POC Sodium POC Potassium POC Chloride POC BUN POC Creatinine POC Glucose 74 Total Creatine Kinase Troponin I Triglycerides Cholesterol LDL Cholesterol, Calc HDL Cholesterol Cholesterol/HDL Ratio Vitamin B12 TSH Urine Color Urine Clarity Urine pH Ur Specific [place] Urine Protein Urine Glucose (UA) Urine Ketones Urine Occult Blood Urine Nitrate Urine Bilirubin Urine Urobilinogen Ur Leukocyte Esterase Urine RBC Urine WBC Urine Mucus Micro UA Comment Ur Microscopic Review Urine Culture Comments Urine Opiates Screen Ur Barbiturates Screen Ur Amphetamines Screen U Benzodiazepines Scrn Urine Cocaine Screen U Cannabinoids Screen Blood Type Blood Type Recheck Antibody Screen 11/20/17 11/20/17 11/20/17 15:25 15:25 15:25 WBC RBC Hgb POC Hgb (Calc) 12.6 L Hct POC Hct 37.0 L MCV MCH MCHC RDW Plt Count MPV Neut % (Auto) Lymph % (Auto) [place] % (Auto) Eos % (Auto) Baso % (Auto) Neut # (Auto) Lymph # (Auto) [place] # (Auto) Eos # (Auto) Baso # (Auto) WBC Differential Differential Comment PT INR APTT Fibrinogen POC Sodium 144 POC Potassium 4.8 POC Chloride 107 POC BUN 18 POC Creatinine 0.7 POC Glucose 67 L Total Creatine Kinase 102 Troponin I Less than 0.02 L Triglycerides 103 Cholesterol 142 LDL Cholesterol, Calc 71 HDL Cholesterol 50.1 Cholesterol/HDL Ratio 2.83 Vitamin B12 283 TSH 0.405 Urine Color Urine Clarity Urine pH Ur Specific [place] Urine Protein Urine Glucose (UA) Urine Ketones Urine Occult Blood Urine Nitrate Urine Bilirubin Urine Urobilinogen Ur Leukocyte Esterase Urine RBC Urine WBC Urine Mucus Micro UA Comment Ur Microscopic Review Urine Culture Comments Urine Opiates Screen Ur Barbiturates Screen Ur Amphetamines Screen U Benzodiazepines Scrn Urine Cocaine Screen U Cannabinoids Screen Blood Type O Positive Blood Type Recheck Required Antibody Screen Negative 11/20/17 11/20/17 17:50 17:50 WBC RBC Hgb POC Hgb (Calc) Hct POC Hct MCV MCH MCHC RDW Plt Count MPV Neut % (Auto) Lymph % (Auto) [place] % (Auto) Eos % (Auto) Baso % (Auto) Neut # (Auto) Lymph # (Auto) [place] # (Auto) Eos # (Auto) Baso # (Auto) WBC Differential Differential Comment PT INR APTT Fibrinogen POC Sodium POC Potassium POC Chloride POC BUN POC Creatinine POC Glucose Total Creatine Kinase Troponin I Triglycerides Cholesterol LDL Cholesterol, Calc HDL Cholesterol Cholesterol/HDL Ratio Vitamin B12 TSH Urine Color Yellow Urine Clarity Clear Urine pH 6.0 Ur Specific [place] 1.043 H Urine Protein Negative Urine Glucose (UA) Negative Urine Ketones Negative Urine Occult Blood Negative Urine Nitrate Negative Urine Bilirubin Negative Urine Urobilinogen 2.0 H Ur Leukocyte Esterase Negative Urine RBC 3 Urine WBC Less than 1 Urine Mucus Few H Micro UA Comment Culture not ind Ur Microscopic Review Not Reportable Urine Culture Comments Culture not ind Urine Opiates Screen Neg Ur Barbiturates Screen Neg Ur Amphetamines Screen Neg U Benzodiazepines Scrn Neg Urine Cocaine Screen Neg U Cannabinoids Screen Neg Blood Type Blood Type Recheck Antibody Screen Review/Management - Diagnosis (1) Acute focal neurological deficit Code(s): R29.818 - Other symptoms and signs involving the nervous system Status: Acute Current Visit: Yes (2) Chronic pain Code(s): G89.29 - Other chronic pain Status: Acute Current Visit: Yes - Review/Management Plan: Diffuse complaints. Possible he could have small lacunar medullary stroke resulting in right-sided pain and weakness CTA brain carotids no significant vaso-occlusive disease mild at the current atherosclerotic disease Recommendations MRI brain scan negative for acute infarct MRI C-spine images reviewed no cord lesion, spondylitic changes mild disc herniation would explain his right leg weakness Acute on chronic pain appears to be his major problem Follow-up MRI T and L-spine to exclude a radiculopathy Pain control therapy
--- NOTE | 2017-11-21 12:55 | MR ---
EXAM DATE: 11/21/2017 12:52 PM EDT AGE/SEX: 62 years / Male INDICATIONS: Pain. Right sided weakness. CLINICAL DATA: This is the patient's initial encounter. Patient reports that signs and symptoms have been present for 2 days and indicates a pain score of 4/10. MEDICAL/SURGICAL HISTORY: Hypertension. Cardiovascular disease. Cerebrovascular disease. [place] n resection. Appendectomy. Tonsillectomy. Cardiac stents. COMPAR[place]: [facility] [place] CERV[place] W/O [place]AST, 11/20/2017. . TECHNIQUE: Multiplanar, multisequence MRI of the thoracic spine was performed. FINDINGS: Fluid-filled distended esophagus Vertebrae: Normal vertebral body height. Homogeneous marrow signal. Alignment: Normal. Cord: Normal position and configuration. T1-T2: The thecal sac has a normal diameter. No evidence of disc bulge or protrusion. T2-T3: The thecal sac has a normal diameter. No evidence of disc bulge or protrusion. T3-T4: The thecal sac has a normal diameter. No evidence of disc bulge or protrusion. T4-T5: The thecal sac has a normal diameter. No evidence of disc bulge or protrusion. T5-T6: The thecal sac has a normal diameter. No evidence of disc bulge or protrusion. T6-T7: The thecal sac has a normal diameter. No evidence of disc bulge or protrusion. T7-T8: The thecal sac has a normal diameter. No evidence of disc bulge or protrusion. T8-T9: The thecal sac has a normal diameter. No evidence of disc bulge or protrusion. T9-T10: The thecal sac has a normal diameter. No evidence of disc bulge or protrusion. T10-T11: The thecal sac has a normal diameter. No evidence of disc bulge or protrusion. T11-T12: The thecal sac has a normal diameter. No evidence of disc bulge or protrusion. T12-L1: Minimal low-grade discogenic edema at T12-L1 with a broad-based bulge., Clearly chronic. CONCLUSION: 1. Discogenic edema posterior to the T12-L1 with a small disc bulge. No acute fracture seen Electronically signed by: Eligio Duran MD 11/21/2017 12:54 PM EDT
--- NOTE | 2017-11-21 13:21 | MR ---
EXAM DATE: 11/21/2017 1:09 PM EDT AGE/SEX: 62 years / Male INDICATIONS: Pain. Right sided weakness. CLINICAL DATA: This is the patient's initial encounter. Patient reports that signs and symptoms have been present for 2 days and indicates a pain score of 3/10. MEDICAL/SURGICAL HISTORY: Hypertension. Cerebrovascular disease. Cardiovascular disease. [place] n resection. Appendectomy. Tonsillectomy. Cardiac stents. COMPARISON: [facility] – [place], [place] CERVICAL SPINE W/O CONTRAST, 11/20/2017. . TECHNIQUE: Multiplanar, multisequence MRI of the lumbar spine was performed without contrast. Patie nt was scanned in a sitting position; neutral, flexion, and extension scans were performed in the sa gittal plane. FINDINGS: Vertebra: The most caudal-appearing lumbar vertebra is numbered as L5. Vertebral Body heights are in tact. Sagital alignment is maintained. Slight diffusely heterogeneous degenerative signal Discs: Diffuse disc space narrowing and disc desiccation throughout the lumbar spine most prominentl y at L2-3, L3-4 and L4-5. Conus: Normal level and configuration. Paraspinal Soft Tissues: No significantfocal renal abnormalities in the visualized kidneys. Visualize d aorta is non-aneurysmal. No Retroperitoneal adenopathy. T12-L1: Diffuse disc bulge eccentric to the right with mild bilateral facet arthropathy. Mild efface ment of the anterior thecal sac. Mild caudal neural foraminal narrowing on the right. L1-L2: Mild to moderate disc space loss. Diffuse disc bulge eccentric to the right with mild bilate ral facet arthropathy. Mild effacement of the anterior thecal sac. Moderate right neural foraminal na rrowing. L2-L3: Mild to moderate disc space loss. Diffuse disc bulge eccentric to the right with mild bilate ral facet arthropathy. Mild effacement of the anterior thecal sac. Mild caudal right neural foraminal narrowing. L3-L4: Moderate to severe disc space loss. Diffuse disc bulge. Mild bilateral facet arthropathy. Mi ld effacement anterior thecal sac. Moderate bilateral neural foraminal narrowing. L4-L5: Moderate to severe disc space loss. Diffuse disc bulge. Mildly mentum flavum hypertrophy. Mo derate right facet hypertrophy and mild left facet arthropathy. Moderate central canal narrowing with central canal measuring approximately 8 mm. Moderate left and severe right neural foraminal stenosis . L5-S1: Mild diffuse disc bulge. Mild ligamentum flavum hypertrophy and bilateral facet arthropathy and mild right facet hypertrophy. Central canal is patent. Moderate bilateral neural foraminal narrow ing. CONCLUSION: 1. Multilevel degenerative spondylosis of the lumbar spine most prominently at L4-5 with moderate ce ntral canal narrowing to approximately 8 mm. 2. Multilevel moderate neural foraminal stenosis with severe right neural foraminal stenosis at L4-5 with near impingement of the exiting nerve root. 3. Please see above for detailed description of each level. Electronically signed by: Celestino Winkler MD 11/21/2017 1:19 PM EDT
[2017-11-21] MEDS: Morphine Sulfate Inj 2 MG/ML Vial IV.PUSH PRN ×2 (15:47→20:08)
[2017-11-21 15:54] LABS: Hemoglobin A1c 5.5 % (4.3-6.0)
--- NOTE | 2017-11-21 16:43 | ECHRPT ---
Indication: ATRIAL FIB CONCLUSIONS The left ventricular systolic function is hyperdynamic with an estimated ejection fraction in the ra nge of 65- 70%. Normal left ventricular size and wall thickness. No regional wall motion abnormalities are present. No significant valvular heart disease. Normal atrial septal thickness without atrial level shunting by limited color doppler interrogation. No prior echo for comparison. BP: / HR: Rhythm: Sinus MEASUREMENTS (Male / Female) Normal Values Technical Quality:Good 2D ECHO LV Diastolic Diameter PLAX 4.6 cm 4.2 - 5.9 / 3.9 - 5.3 cm LV Systolic Diameter PLAX 3.1 cm IVS Diastolic Thickness 1.1 cm 0.6 - 1.0 / 0.6 - 0.9 cm LVPW Diastolic Thickness 1.0 cm 0.6 - 1.0 / 0.6 - 0.9 cm LV Relative Wall Thickness 0.4 RV Internal Dim ED PLAX 3.2 cm LVOT Diameter 2.1 cm LA Systolic Diameter LX 4.3 cm 3.0 - 4.0 / 2.7 - 3.8 cm LV Ejection Fraction MOD 4C 64.9 % LV Ejection Fraction 4C AL 67.4 % M-MODE Aortic Root Diameter MM 2.1 cm LA Systolic Diameter MM 4.4 cm LA Ao Ratio MM 2.1 AV Cusp Separation MM 1.9 cm DOPPLER AV Peak Velocity 174.0 cm/s AV Peak Gradient 12.1 mmHg LVOT Peak Velocity 106.0 cm/s LVOT Peak Gradient 4.5 mmHg AV Area Cont Eq pk 2.1 cm MV Area PHT 2.4 cm Mitral E Point Velocity 88.8 cm/s Mitral A Point Velocity 105.0 cm/s Mitral E to A Ratio 0.8 TR Peak Velocity 251.0 cm/s TR Peak Gradient 25.2 mmHg Right Atrial Pressure 10.0 mmHg Pulmonary Artery Systolic Pressu 35.2 mmHg Right Ventricular Systolic Press 35.2 mmHg PV Peak Velocity 95.0 cm/s PV Peak Gradient 3.6 mmHg FINDINGS LEFT VENTRICLE The left ventricular systolic function is hyperdynamic with an estimated ejection fraction in the ra nge of 65- 70%. Normal left ventricular size. Wall thickness is normal. No regional wall motion abnormalities are present. RIGHT VENTRICLE Normal right ventricular size and systolic function. LEFT ATRIUM The left atrial size is normal. RIGHT ATRIUM The right atrial size is normal. ATRIAL SEPTUM Normal atrial septal thickness without atrial level shunting by limited color doppler interrogation. AORTA The aortic root and proximal ascending aorta are normal in size on limited imaging. MITRAL VALVE Structurally normal mitral valve. No mitral valve stenosis or regurgitation. AORTIC VALVE Trileaflet aortic valve. No aortic valve stenosis or regurgitation. TRICUSPID VALVE Structurally normal tricuspid valve. There is trace tricuspid valve regurgitation. The estimated pulmonary arterial pressure is 35.2 mmHg. PULMONARY VALVE No pulmonary valve regurgitation or stenosis. VESSELS The inferior vena cava is normal in size. PERICARDIUM No pericardial effusion. Christelle La MD (Electronically Signed) Final Date:21 November 2017 16:42
--- NOTE | 2017-11-21 18:40 | ECG ---
Date Performed: 11/20/2017 Time Performed: 15:54:04 PTAGE: 62 years EKG: SINUS BRADYCARDIA BORDERLINE ECG PREVIOUS TRACING : 03/16/2017 05.37 DOCTOR: Yvonne Mariscal Interpretating Date/Time 11/21/2017 18:36:17
[2017-11-21] MEDS ORDERED: MethylPREDNISolone Sod Succinate Inj 125 MG/2 ML Vial IV.PUSH ONE (18:45)
[2017-11-22] MEDS: Morphine Sulfate Inj 2 MG/ML Vial IV.PUSH PRN ×3 (01:09→11:01)
[2017-11-22 03:31] VITALS: O2SAT 91
[2017-11-22] MEDS: Sod Chloride 0.9% Inj 1,000 ML IV.CONT SCH ×2 (05:43→11:00)
[2017-11-22 07:24] LABS: Hematocrit 39.8 % (39.0-51.0); Hemoglobin 13.8 gm/dL (13.0-17.0); Mean Corpuscular HGB Conc 34.7 % (32.0-36.0); Mean Corpuscular Hemoglobin 34.4 pg (27.0-34.0); Mean Platelet Volume 9.5 fL (7.0-11.0); Platelet Count 148 th/mm3 (150-450); Red Blood Count 4.02 mil/mm3 (4.50-5.90); Red Cell Distribution Width 13.4 % (11.6-17.2); White Blood Count 6.2 th/mm3 (4.0-11.0)
[2017-11-22 07:48] LABS: Alanine Aminotransferase 16 U/L (12-78); Albumin 3.2 g/dL (3.4-5.0); Anion Gap 11 meq/L (5-15); Aspartate Aminotransferase 14 U/L (15-37); Blood Urea Nitrogen 17 mg/dL (7-18); Calcium 8.3 mg/dL (8.5-10.1); Carbon Dioxide 24.5 meq/L (21.0-32.0); Chloride 110 meq/L (98-107); Glomerular Filtration Rate Greater Than 89 mL/min (>89); Glucose,Random 143 mg/dL (74-106); Potassium 3.7 meq/L (3.5-5.1); Sodium 145 meq/L (136-145)
[2017-11-22 07:50] LABS: Alkaline Phosphatase 121 U/L (45-117); Total Protein 6.8 g/dL (6.4-8.2)
[2017-11-22] MEDS: Aspirin 325 MG Tablet PO SCH (09:11)
[2017-11-22] MEDS: Heparin - SQ 10,000 UNITS/ML Vial SQ SCH (09:14)
[2017-11-22] MEDS: amLODIPine 10 MG Tablet PO SCH (09:14)
--- NOTE | 2017-11-22 09:32 | P.CONNS ---
History of Present Illness Service: Neurosurgery Consult date: 11/22/17 Requesting Physician: Jasmin Stein Reason for Consult: Cervical foraminal stenosis Primary Care Provider: Shelby Mckeon MD Family Provider: Shelby Mckeon MD Chief Complaint: Right-sided weakness History of Present Illness: 62-year-old gentleman who presents with complaints of headaches for the past couple of days. He underwent posterior cervical spine surgery a year and a half ago in [place] and relates that he has had right-sided weakness and numbness since then which is chronic and he uses a walker at home to ambulate. With the headaches a few days ago he noticed some increased weakness in the right arm and leg which he states at this point is back to his baseline status. He has been seen by neurology service and complete cranial spinal MRI scan imaging obtained. He does not have any significant cervical or thoracic spinal cord stenosis or cord compression with some degenerative changes and foraminal stenosis. There is also mild to moderate lumbar L4-5 stenosis from facet hypertrophy. He denies any left arm or leg weakness or numbness. Review of Systems All other systems reviewed negative except as stated in HPI PMFSH - History History Provided By: Patient - Medical History Medical History: Medical History (Last Reviewed 11/22/17 @ 09:23 by Doroteo Barnes MD) CAD (coronary artery disease) CVA (cerebral vascular accident) HTN (hypertension) with goal to be determined - Surgical History Surgical History: Surgical History (Last Updated 11/22/17 @ 09:23 by Doroteo Barnes MD) H/O neck surgery Hx of cardiac cath - Tobacco History Second Hand Smoke Exposure: Yes Tobacco Use In Past 30 Days: Yes Smoking Status: Current every day smoker Tobacco Type: Cigarettes - Alcohol History How Often Do You Have a Drink Containing Alcohol: Never - Substance Use History Substance History: No History of Abuse - Travel History Recent Travel in the [place] Within the Last 8 Weeks: No Recent Travel Out of the Country Within the Last 8 Weeks: No - Immunization History Tetanus Immunization: Unsure Hx Influenza Vaccine This Season: No Medications and Allergies Active Medications: Active Medications Acetaminophen/Butalbital/Caffeine (Fioricet 50-325-40) 1 tab PO Q8H PRN PRN Reason: HEADACHE Last Admin: 11/20/17 21:48 Dose: 1 tab Hydrocodone Bitart/Acetaminophen ([place] 10/325) 1 tab PO Q6H PRN PRN Reason: BACK PAIN Last Admin: 11/21/17 01:58 Dose: 1 tab Amlodipine Besylate (Norvasc) 10 mg PO DAILY [facility] Last Admin: 11/22/17 09:14 Dose: 10 mg Aspirin (Aspirin) 325 mg PO DAILY [facility] Last Admin: 11/22/17 09:11 Dose: Not Given Atorvastatin Calcium (Lipitor) 10 mg PO DAILY [facility] Last Admin: 11/22/17 09:15 Dose: 10 mg Clonidine HCl (Catapres) 0.1 mg PO Q6H PRN PRN Reason: Sbp>170, Dbp>90 Heparin Sodium (Porcine) (Heparin Inj) 5,000 units SQ Q12HR [facility] Last Admin: 11/22/17 09:14 Dose: 5,000 units Sodium Chloride (Ns Inj) 1,000 mls @ 70 mls/hr IV.CONT .[id number] [facility] Last Admin: 11/22/17 05:43 Dose: 70 mls/hr Metoprolol Tartrate (Lopressor) 100 mg PO DAILY [facility] Last Admin: 11/21/17 08:41 Dose: Not Given Morphine Sulfate (Morphine Inj) 2 mg IV.PUSH Q4H PRN PRN Reason: PAIN 1-10 AND/OR FEVER >101F Last Admin: 11/22/17 05:43 Dose: 2 mg Allergies Allergy/AdvReac Type Severity Reaction Status Date / Time No Known Allergies Allergy Verified 11/20/17 14:13 Home Medications Medication Instructions Recorded Confirmed Type amlodipine 10 mg PO DAILY 11/20/17 11/20/17 History metoprolol tartrate 100 mg PO DAILY 11/20/17 11/20/17 History oxycodone-acetaminophen 1 tab PO Q4H PRN 11/20/17 11/20/17 History Exam Vital signs: Vital Signs 11/21/17 16:00 11/21/17 19:22 11/21/17 19:59 Temperature 98.1 F 97.7 F Pulse Rate 61 68 Respiratory Rate 12 20 Blood Pressure 135/76 120/72 Pulse Oximetry 95 98 94 L 11/21/17 23:24 11/22/17 03:29 11/22/17 08:00 Temperature 98.0 F 97.7 F 97.7 F Pulse Rate 65 68 63 Respiratory Rate 20 20 16 Blood Pressure 132/74 124/74 140/78 Pulse Oximetry 90 L 91 L 91 L Intake & Output 11/21/17 11/22/17 11/22/17 18:59 06:59 18:59 Intake Total 1000 / 1000 Output Total 1700 / 1700 Balance -700 / -700 Weight 81.7 kg Intake: IV 1000 / 1000 NS Inj 1,000 ML @ 70 mls/hr IV. 1000 / 1000 CONT .[id number] [facility] Rx#:[id number] Output: Urine 1700 / 1700 Other: # Voids 1 Date of Last Bowel Movement 11/20/17 - Constitutional no acute distress - Routine HEENT Exam Head: Present: normocephalic, atraumatic Eye: Present: EOMI, PERRL ENT: Present: oropharynx clear, nares patent, external ear normal - Routine Neck Exam Present: supple, full ROM - Routine Respiratory Exam Present: CTA bilaterally - Routine Cardiovascular Exam Present: RRR, S1, S2 - Routine Abdominal Exam Present: soft, normoactive bowel sounds - Routine Extremities Exam Present: cyanosis - Routine Skin Exam Present: intact - Routine Neurological Exam Present: oriented X3, CN II-XII intact, sensory deficit (Relates that numbness to right arm and leg in a nondermatomal pattern to light touch), motor deficit ( Mild right-sided weakness 4+/5 with the left arm and leg 5/5), plantar reflex, moving all extremities, normal speech Results - Laboratory Findings CBC and BMP: 11/22/17 06:15 11/22/17 06:15 Abnormal lab findings: Abnormal Labs 11/20/17 11/20/17 11/20/17 15:25 15:25 17:50 RBC 3.79 L POC Hgb (Calc) 12.6 L Hct 38.1 L POC Hct 37.0 L MCV 100.6 H MCH 34.5 H Plt Count [place] % (Auto) 11.2 H Eos % (Auto) 4.5 H Chloride POC Glucose 67 L Random Glucose Calcium AST Alkaline Phosphatase Troponin I Less than 0.02 L Albumin Ur Specific [place] 1.043 H Urine Urobilinogen 2.0 H Urine Mucus Few H 11/22/17 11/22/17 06:15 06:15 RBC 4.02 L POC Hgb (Calc) Hct POC Hct MCV MCH 34.4 H Plt Count 148 L [place] % (Auto) Eos % (Auto) Chloride 110 H POC Glucose Random Glucose 143 H Calcium 8.3 L AST 14 L Alkaline Phosphatase 121 H Troponin I Albumin 3.2 L Ur Specific [place] Urine Urobilinogen Urine Mucus - Diagnostic Findings Additional findings: Impressions Head MRI 11/20/17 00:00 CONCLUSION: Chronic small vessel ischemic and atrophic changes. Chest X-Ray 11/20/17 15:20 CONCLUSION: Negative examination. Head CT 11/20/17 15:20 CONCLUSION: 1. No acute findings. Report was called by [ Dr. Carvajal to Dr. Zhu at 3:38pm on 11/20/17.] Head CTA 11/20/17 15:20 CONCLUSION: 1. Negative CTA Head. Neck CTA 11/20/17 15:20 CONCLUSION: 1. Mild atherosclerosis without evidence for hemodynamically significant stenosis. Cervical Spine MRI 11/20/17 16:39 CONCLUSION: Neural foraminal compromise right C3-4, left C4-5, bilateral C5-6, bilateral C6-7 and effacement of the anterior CSF space C5-6. No significant thecal sac stenosis. Lumbar Spine MRI 11/21/17 00:00 CONCLUSION: 1. Multilevel degenerative spondylosis of the lumbar spine most prominently at L4-5 with moderate central canal narrowing to approximately 8 mm. 2. Multilevel moderate neural foraminal stenosis with severe right neural foraminal stenosis at L4-5 with near impingement of the exiting nerve root. 3. Please see above for detailed description of each level. Thoracic Spine MRI 11/21/17 10:27 CONCLUSION: 1. Discogenic edema posterior to the T12-L1 with a small disc bulge. No acute fracture seen Assessment and Plan - Assessment (1) Cervical spine degeneration Code(s): M47.812 - Spondylosis without myelopathy or radiculopathy, cervical region Status: Acute (2) Lumbar arthropathy Code(s): M47.816 - Spondylosis without myelopathy or radiculopathy, lumbar region Status: Acute - Plan 62-year-old gentleman with a chronic history of right sided weakness and numbness since his posterior cervical spine surgery in [place] a year and a half ago. Several days ago he had an exacerbation of his headache and right- sided weakness which at this point smita returned back to baseline status. Cranial spinal MRI scan imaging reveals no spinal cord compression with degenerative disc disease involving the lumbar and cervical spine with some cervical foraminal stenosis and mild to moderate L4-5 stenosis which are all chronic and do not corroborate with his neurologic presentation or warrant any further surgical intervention. Recommend physical therapy/rehabilitation and pain management. Discussed with patient and his at the bedside who understand and are in agreement. Neurosurgery service will sign off.
--- NOTE | 2017-11-22 11:52 | P.PN ---
Subjective Interval history: Patient doing well overnight, reports improved pain overnight and feels that he is back to his baseline. Patient is F/V/S well, no other concerns. Physical Exam Vital signs: Vital Signs 11/21/17 16:00 11/21/17 19:22 11/21/17 19:59 Temperature 98.1 F 97.7 F Pulse Rate 61 68 Respiratory Rate 12 20 Blood Pressure 135/76 120/72 Pulse Oximetry 95 98 94 L 11/21/17 23:24 11/22/17 03:29 11/22/17 08:00 Temperature 98.0 F 97.7 F 97.7 F Pulse Rate 65 68 63 Respiratory Rate 20 20 16 Blood Pressure 132/74 124/74 140/78 Pulse Oximetry 90 L 91 L 91 L Intake & Output 11/21/17 11/22/17 11/22/17 18:59 06:59 18:59 Intake Total 1000 / 1000 Output Total 1700 / 1700 Balance -700 / -700 Weight 81.7 kg Intake: IV 1000 / 1000 NS Inj 1,000 ML @ 70 mls/hr IV. 1000 / 1000 CONT .[id number] [facility] Rx#:[id number] Output: Urine 1700 / 1700 Other: # Voids 1 Date of Last Bowel Movement 11/20/17 Narrative: GENERAL: well nourished male, in mild distress due to pain SKIN: Warm and dry. HEENT: Atraumatic. Normocephalic. Pupils equal and round. No scleral icterus. MOM. ENT: No nasal bleeding or discharge. Mucous membranes pink and moist. NECK: Trachea midline. No JVD. No nuchal rigidity. CARDIOVASCULAR: Regular rate and rhythm. RESPIRATORY: No accessory muscle use. GASTROINTESTINAL: Abdomen soft, non-tender, nondistended. MUSCULOSKELETAL: Extremities without clubbing, cyanosis, or edema. No obvious deformities. Significant TTP of Lumbar spine. NEUROLOGICAL: AAOX3. No facial asymmetry, tongue midline, right hemiparesis right upper extremity strength 4/5, right lower extremity 4/5; LUE and LLE 5/5. PSYCHIATRIC: Appropriate mood and affect; insight and judgment normal. Results - Labs CBC & Chem 7: 11/22/17 06:15 11/22/17 06:15 Laboratory Results - last 24 hr 11/20/17 11/22/17 11/22/17 15:25 06:15 06:15 WBC 6.2 RBC 4.02 L Hgb 13.8 Hct 39.8 MCV 99.0 MCH 34.4 H MCHC 34.7 RDW 13.4 Plt Count 148 L MPV 9.5 Sodium 145 Potassium 3.7 Chloride 110 H Carbon Dioxide 24.5 Anion Gap 11 BUN 17 Creatinine 0.79 Estimated GFR Greater than 89 POC Glucose Random Glucose 143 H Hemoglobin A1c 5.5 Calcium 8.3 L Total Bilirubin 0.3 AST 14 L ALT 16 Alkaline Phosphatase 121 H Total Protein 6.8 Albumin 3.2 L 11/22/17 11:17 WBC RBC Hgb Hct MCV MCH MCHC RDW Plt Count MPV Sodium Potassium Chloride Carbon Dioxide Anion Gap BUN Creatinine Estimated GFR POC Glucose 219 H Random Glucose Hemoglobin A1c Calcium Total Bilirubin AST ALT Alkaline Phosphatase Total Protein Albumin - Imaging Impressions Lumbar Spine MRI 11/21/17 00:00 CONCLUSION: 1. Multilevel degenerative spondylosis of the lumbar spine most prominently at L4-5 with moderate central canal narrowing to approximately 8 mm. 2. Multilevel moderate neural foraminal stenosis with severe right neural foraminal stenosis at L4-5 with near impingement of the exiting nerve root. 3. Please see above for detailed description of each level. Thoracic Spine MRI 11/21/17 10:27 CONCLUSION: 1. Discogenic edema posterior to the T12-L1 with a small disc bulge. No acute fracture seen Assessment and Plan - Assessment (1) Acute focal neurological deficit Code(s): R29.818 - Other symptoms and signs involving the nervous system Status: Acute (2) Chronic pain Code(s): G89.29 - Other chronic pain Status: Chronic (3) Cervical spine degeneration Code(s): M47.812 - Spondylosis without myelopathy or radiculopathy, cervical region Status: Chronic (4) Lumbar arthropathy Code(s): M47.816 - Spondylosis without myelopathy or radiculopathy, lumbar region Status: Acute - Plan This is a 62-year-old HM with PMHX of HTN, CVA with residual R sided weakness admitted for new onset of increased weakness worsened from baseline, HD#3 1. Hx of CVA- Acute CVA ruled out Presenting with increased right-sided weakness now resolved History of previous CVA with baseline right-sided hemiparesis from 2 years ago PT/OT evaluation with benefit from home PT/OT Managed by neuro- appreciate assistance with mgmt Cont. ASA and statin Imaging: Head CT Neg, Neck CTA Neg Cervical Spine MRI: Neural foraminal compromise right C3-4, left C4-5, bilateral C5-6, bilateral C6-7 and effacement of the anterior CSF space C5-6. No significant thecal sac stenosis. MRI brain with no acute findings Echo WNL Per Neuro reccs: Possible small lacunar medullary stroke resulting in right-sided pain and weakness. CTA brain carotids no significant vaso-occlusive disease mild at the current atherosclerotic disease. MRI C-spine images reviewed no cord lesion, spondylitic changes mild disc herniation would explain his right leg weakness. Acute on chronic pain appears to be his major problem. Per neuro surgery: Recommend physical therapy/rehabilitation and pain management. MRI LUMBAR SPINE 11/21 1. Multilevel degenerative spondylosis of the lumbar spine most prominently at L4-5 with moderate central canal narrowing to approximately 8 mm. 2. Multilevel moderate neural foraminal stenosis with severe right neural foraminal stenosis at L4-5 with near impingement of the exiting nerve root. 2. Chronic Back Pain, worsened from baseline with increased RLE pain/weakness Holding Hydrocodone as no relief when given Morphine PRN 3. Hx of HTN Continue home Amlodipine and Metoprolol Clonidine PRN Telemetry 4. Smoker: counseled on smoking cessation and risks discussed. 5. DVT PPX: Heparin 6. Dispo: Findings are chronic, pain improved s/p steroids and Morphine PRN, stable for D/C, F/U with PCP, Ortho, and pain mgmt as outpatient. Will go home with PT. Face to face done, wheel chair ordered. Code Status: full Discussed Condition With: patient, , RN, CM
--- NOTE | 2017-11-22 11:55 | P.DCO ---
- Physical Therapy Order: Evaluate and treat - Occupational Therapy Order: Evaluate and treat - Case Management Consult Yes - Certification I have seen patient Alfredo Flores on 11/22/17. My clinical findings support the need for the requested home health care services because: Deconditioned with increased weakness I certify that my clinical findings support that this patient is homebound because: Unsteady gait/balance
[2017-11-22 12:14] VITALS: BP 138/74; PULSE 76; RESP 12; TEMP 98.1
== END 2017-11-22 16:54 | disposition home health service (06) ==
LOC: NEDA 13:59 → NEPD 13:59 → NEDA 19:11 → NEPFCDU 19:35
PROVIDERS: ADMIT Family Medicine; ATTEND Family Medicine